=== PATIENT | female | born 1930 | race Hispanic/Latino ===

== ENCOUNTER 2016-11-18 01:08 | Inpatient (IN) | payer MEDICARE, OTHER ==
--- NOTE | 2016-11-18 01:32 | ED PDOC ---
Arrival/HPI - General Chief Complaint: Lower Extremity Problem/Injury Time Seen by Provider: 11/18/16 01:20 Historian: Patient, Usp - History of Present Illness Narrative History of Present Illness (Text): 11/18/16 01:32 Teresa Rojo is an 86 year old female, whose past medical history includes DVT , NSTEMI, hypothyroidism, hyperlipidemia, anxiety, dementia, hypertension, and CHF, who [facility] complaining of right lower leg pain with associated redness. Patient was sent after venous dopplers of the lower extremities were positive for right superficial femoral thrombus and possible left common vein thrombus and further evaluation. Patient denies any fever, chills, chest pain, shortness of breath, or any other complaints. PMD: Dr. Cummins Symptom Onset: Gradual Symptom Course: Unchanged Activities at Onset: Rest, Light Context: Home (assisted) Past Medical History - Infectious Disease Hx of Infectious Diseases: None - Tetanus Immunization Tetanus Immunization: Unknown - Reproductive Menopause: Yes - Cardiac Hx Cardiac Disorders: Yes (Heart murmur) Hx Hypertension: Yes - Pulmonary Hx Respiratory Disorders: No - Neurological Hx Neurological Disorder: Yes HX Cerebrovascular Accident: Yes Hx Dementia: Yes Other/Comment: difff walking - HEENT Hx HEENT Disorder: No - Renal Hx Renal Disorder: No - Endocrine/Metabolic Hx Endocrine Disorders: Yes Hx Hyperthyroidism: Yes - Hematological/Oncological Hx Blood Disorders: No - Integumentary Hx Dermatological Disorder: No - Musculoskeletal/Rheumatological Hx Falls: Yes - Gastrointestinal Hx Gastrointestinal Disorders: Yes (GERD CONSTIPATION,POOR APPETITE) - Genitourinary/Gynecological Hx Genitourinary Disorders: Yes Hx Reproductive Disorders: No - Psychiatric Hx Psychophysiologic Disorder: No Hx Anxiety: Yes Hx Depression: No Hx Emotional Abuse: No Hx Physical Abuse: No Hx Substance Use: No - Past Surgical History Past Surgical History: No Previous - Surgical History Hx Coronary Stent: Yes Hx Thyroidectomy: Yes Other/Comment: partial thyroidectomy many yrs ago - Anesthesia Hx Anesthesia Reactions: No Hx Malignant Hyperthermia: No - Suicidal Assessment Feels Threatened In Home Enviroment: No Family/Social History Family/Social History: No Known Family HX Smoking Status: Never Smoked Hx Alcohol Use: No Hx Substance Use: No Hx Substance Use Treatment: No Allergies/Home Meds Allergies/Adverse Reactions: Allergies No Known Allergies Allergy (Verified 11/18/16 01:26) Home Medications: Home Meds Medication Instructions Recorded Confirmed Aspirin [Tift Aspirin] 81 mg PO DAILY 11/18/16 11/18/16 Atorvastatin Calcium 10 mg PO DAILY 11/18/16 11/18/16 Clopidogrel [Plavix] 75 mg PO DAILY 11/18/16 11/18/16 Donepezil HCl [Aricept] 10 mg PO HS 11/18/16 11/18/16 Ferrous Gluconate [Fergon] 324 mg PO DAILY 11/18/16 11/18/16 Furosemide [Lasix] 40 mg PO DAILY 11/18/16 11/18/16 Isosorbide Mononitrate [Imdur] 30 mg PO DAILY 11/18/16 11/18/16 LORazepam [Ativan] 0.5 mg PO HS 11/18/16 11/18/16 Levothyroxine Sodium [Levo-T] 100 mcg PO DAILY 11/18/16 11/18/16 Metoprolol Tartrate [Lopressor] 50 mg PO DAILY 11/18/16 11/18/16 Potassium Chloride [Klor-Con 10] 10 meq PO DAILY 11/18/16 11/18/16 Review of Systems - Physician Review All systems were reviewed & negative as marked: Yes - Review of Systems Constitutional: Normal. absent: Fevers Eyes: Normal ENT: Normal Respiratory: Normal. absent: SOB, Cough Cardiovascular: Normal. absent: Chest Pain Gastrointestinal: Normal. absent: Abdominal Pain, Diarrhea, Nausea, Vomiting Genitourinary Female: Normal. absent: Dysuria, Frequency, Hematuria, Urine Output Changes Musculoskeletal: Other (+right lower leg pain). absent: Back Pain, Neck Pain Skin: Normal. absent: Rash Neurological: Normal Endocrine: Normal Hemo/Lymphatic: Normal Psychiatric: Normal Physical Exam Vital Signs Reviewed: Yes Vital Signs Temp Pulse Resp BP Pulse Ox 11/18/16 01:21 98.6 F 80 18 120/58 L 95 Temperature: Afebrile Blood Pressure: Normal Pulse: Regular Respiratory Rate: Normal Appearance: Positive for: Well-Appearing, Non-Toxic, Comfortable Pain Distress: None Mental Status: Positive for: Alert and Oriented X 3 - Systems Exam Head: Present: Atraumatic, Normocephalic Pupils: Present: PERRL Extroacular Muscles: Present: EOMI Conjunctiva: Present: Normal Mouth: Present: Moist Mucous Membranes Neck: Present: Normal Range of Motion Respiratory/Chest: Present: Clear to Auscultation, Good Air Exchange. No: Respiratory Distress, Accessory Muscle Use Cardiovascular: Present: Regular Rate and Rhythm, Normal S1, S2. No: Murmurs Abdomen: Present: Normal Bowel Sounds. No: Tenderness, Distention, Peritoneal Signs Back: Present: Normal Inspection Upper Extremity: Present: Normal Inspection. No: Cyanosis, Edema Lower Extremity: Present: CALF TENDERNESS (Calf tenderness to right lower leg), Tenderness (Tenderess to palpation of right lower leg, minimal tenderness to left lower leg), Erythema (Cellulitis/erythema to right and left lower leg), Temperature Abnormalties (Warmth to bilateral lower legs) Neurological: Present: GCS=15, CN II-XII Intact, Speech Normal Skin: Present: Warm, Dry, Normal Color. No: Rashes Psychiatric: Present: Alert, Oriented x 3, Normal Insight, Normal Concentration Medical Decision Making ED Course and Treatment: 11/18/16 01:32 Impression: 86 year old female c/o right lower leg pain. Pt sent for positive lower extremities ultrasound. Plan: -- EKG -- CXR -- Labs, blood cultures -- Reassess and disposition Progress Notes: Reviewed EKG, NSR at [address] LVH. Non-specific ST/T wave changes. 11/18/16 04:01 Case discussed with biomedical technician substation technician, who is aware and agrees with plan. Case discussed with Dr. Swift, who is aware and agrees with plan. Accepts pt in to hospitalist service. Pt will be admitted to [facility] for cellulitis and DVT. - Lab Interpretations Lab Results: 11/18/16 03:17 11/18/16 03:17 Lab Results 11/18/16 03:17: WBC 6.3, RBC 3.54, Hgb 11.3 L, Hct 34.4 L, MCV 97.2, MCH 31.9, MCHC 32.8, RDW 13.9, Plt Count 187, MPV 9.5 11/18/16 03:17: Sodium 135, Potassium 4.3, Chloride 100, Carbon Dioxide 26, Anion Gap 13, BUN 25 H, Creatinine 1.2, Est GFR ( Amer) 51, Est GFR (Non- Af Amer) 42, Random Glucose 111 H, Calcium 8.3 L, Total Bilirubin 0.3, AST 29, ALT 27, Alkaline Phosphatase 73, Total Protein 6.5, Albumin 3.6, Globulin 2.9, Albumin/Globulin Ratio 1.3 11/18/16 03:17: PT 10.2, INR 0.94, APTT 29.7 I have reviewed the lab results: Yes - RAD Interpretation Radiology Orders: 11/18/16 01:34 CHEST PORTABLE [RAD] Stat Ax Survey Worker: Radiologist - EKG Interpretation Interpreted by ED Physician: Yes Type: 12 lead EKG - Medication Orders Current Medication Orders: Acetaminophen (Tylenol 325mg Tab) 650 mg PO Q6H PRN PRN Reason: Pain, moderate (4-7) Aspirin (Aspirin Chewable) 81 mg PO DAILY [facility] Atorvastatin Calcium (Lipitor) 10 mg PO DAILY [facility] Clopidogrel Bisulfate (Plavix) 75 mg PO DAILY [facility] Donepezil HCl (Aricept) 10 mg PO HS [facility] Doxycycline Hyclate (Doryx) 100 mg PO Q12 [facility] PRN Reason: Protocol Stop: 11/24/16 10:00 Ferrous Gluconate (Fergon) 324 mg PO DAILY [facility] Fluconazole (Diflucan) 100 mg PO DAILY [facility] PRN Reason: Protocol Stop: 11/24/16 10:00 Furosemide (Lasix) 40 mg PO DAILY [facility] Isosorbide Mononitrate (Imdur) 30 mg PO DAILY [facility] Levothyroxine Sodium (Synthroid) 100 mcg PO DAILY [facility] Lorazepam (Ativan) 0.5 mg PO HS [facility] PRN Reason: Protocol Metoprolol Tartrate (Lopressor) 50 mg PO DAILY [facility] Pantoprazole Sodium (Protonix Inj) 40 mg IVP DAILY [facility] Potassium Chloride (Klor-Con 10) 10 meq PO DAILY [facility] Discontinued Medications Enoxaparin Sodium (Lovenox) 80 mg SC STAT STA PRN Reason: Protocol Stop: 11/18/16 03:54 Last Admin: 11/18/16 04:31 Dose: 80 mg Vancomycin HCl (Vancomycin 1gm) 1 gm in 250 mls @ 133.333 mls/hr IVPB STAT STA PRN Reason: Protocol Stop: 11/18/16 05:45 Last Admin: 11/18/16 04:21 Dose: 133.333 mls/hr - Scribe Statement The provider has reviewed the documentation as recorded by the Ramón Phillips Provider Scribe Attestation: All medical record entries made by the Ramón were at my direction and personally dictated by me. I have reviewed the chart and agree that the record accurately reflects my personal performance of the history, physical exam, medical decision making, and the department course for this patient. I have also personally directed, reviewed, and agree with the discharge instructions and disposition. Disposition/Present on Arrival - Present on Arrival Any Indicators Present on Arrival: No History of DVT/PE: No History of Uncontrolled Diabetes: No Urinary Catheter: No History of Decub. Ulcer: No History Surgical Site Infection Following: None - Disposition Have Diagnosis and Disposition been Completed?: Yes Diagnosis: DVT, lower extremity, Cellulitis of leg Disposition: HOSPITALIZED Disposition Time: 03:59 Patient Plan: Admission Patient Problems: Current Active Problems Problem Status Onset Cellulitis of leg Acute DVT, lower extremity Acute Condition: STABLE
[2016-11-18 03:30] LABS: HEMATOCRIT 34.4 % (36.0-48.0); MEAN CELL VOLUME 97.2 fl (80.0-105.0); MEAN CORPUSCULAR HEMOGLOBIN 31.9 pg (25.0-35.0); MEAN CORPUSCULAR HGB CONC 32.8 g/dl (31.0-37.0); MEAN PLATELET VOLUME 9.5 fl (7.0-11.0); RED CELL DISTRIBUTION WIDTH 13.9 % (11.5-14.5); WHITE BLOOD COUNT 6.3 10^3/ul (4.5-11.0)
[2016-11-18 03:38] LABS: INR 0.94 (0.93-1.08); PARTIAL THROMBOPLASTIN TIME 29.7 Seconds (23.7-30.8)
[2016-11-18 03:43] LABS: ALB/GLOB RATIO 1.3 (1.1-1.8); BILIRUBIN,TOTAL 0.3 mg/dL (0.2-1.3); CALCIUM 8.3 mg/dL (8.4-10.5); POTASSIUM 4.3 mmol/L (3.6-5.0); TOTAL PROTEIN 6.5 g/dL (5.8-8.3)
[2016-11-18] MEDS ORDERED: Enoxaparin 80 mg Syringe SC STA (03:53)
[2016-11-18] MEDS ORDERED: Vancomycin 1gm in NS 250ml 1 GM/250 ML BAG IVPB STA (03:53)
--- NOTE | 2016-11-18 04:57 | CP.PCM.HP ---
<Arnol Canchola - Last Filed: 11/18/16 06:07> History of Present Illness - History of Present Illness History of Present Illness: CC: Lower leg edema/pain HPI: Patient is a 86 year old female with PMH sig for DVT, NSTEMI, hypothyroidism, HLD, anxiety, HTN, CHF and dementia who presents to the ED from [facility] complaining of lower leg edema and redness. The patient was sent to [facility] by Dr. Cummins for further evaluation after lower extremity venous dopplers were positive for right superficial femoral thrombus with possible left common vein thrombus. Patient is noted to be poor historian during interview and expresses inappropriate comments directed toward interviewer. Patient interviewed with female nurse present. She reports noticing her leg edema and redness for the past month. According to chart notes sent with patient from [place] she has was scheduled to receive Augmentin for lower extremity cellulitis. Patient possibly received 2 days of antibiotic. She indicates that her legs are itchy and are painful to touch with the right leg being more sensitive then the left. Patient denies chest pain, shortness of breath, fever, chills, nausea, vomiting, loss of feeling in her lower extremities, or other complaints. 12 point ROS is negative otherwise noted in HPI. PMH: As stated above PSH: denies FMH: denies SocHx: Tobacco: denies, ETOH: Denies, ID: Denies Allergies: NKDA Meds: See JUN PMD: Dr. Cummins Present on Admission - Present on Admission Any Indicators Present on Admission: Yes History of DVT/PE: Yes History of Uncontrolled Diabetes: No Urinary Catheter: No Decubitus Ulcer Present: No Review of Systems - Review of Systems All systems: reviewed and no additional remarkable complaints except Review of Systems: except mentioned in HPI Past Patient History - Infectious Disease Hx of Infectious Diseases: None - Tetanus Immunizations Tetanus Immunization: Unknown - Past Social History Smoking Status: Never Smoked Alcohol: None Drugs: Denies - CARDIAC Hx Cardiac Disorders: Yes (Heart murmur) Hx Hypertension: Yes - PULMONARY Hx Respiratory Disorders: No - NEUROLOGICAL Hx Neurological Disorder: Yes HX Cerebrovascular Accident: Yes Hx Dementia: Yes Other/Comment: difff walking - HEENT Hx HEENT Problems: No - RENAL Hx Chronic Kidney Disease: No - ENDOCRINE/METABOLIC Hx Endocrine Disorders: Yes Hx Hyperthyroidism: Yes - HEMATOLOGICAL/ONCOLOGICAL Hx Blood Disorders: No - INTEGUMENTARY Hx Dermatological Problems: No - MUSCULOSKELETAL/RHEUMATOLOGICAL Hx Falls: Yes - GASTROINTESTINAL Hx Gastrointestinal Disorders: Yes (GERD CONSTIPATION,POOR APPETITE) - GENITOURINARY/GYNECOLOGICAL Hx Genitourinary Disorders: Yes Hx Reproductive Disorders: No - PSYCHIATRIC Hx Psychophysiologic Disorder: No Hx Anxiety: Yes Hx Depression: No Hx Emotional Abuse: No Hx Physical Abuse: No Hx Substance Use: No - SURGICAL HISTORY Hx Coronary Stent: Yes Hx Thyroidectomy: Yes Other/Comment: partial thyroidectomy many yrs ago - ANESTHESIA Hx Anesthesia Reactions: No Hx Malignant Hyperthermia: No Meds Allergies/Adverse Reactions: Allergies Allergy/AdvReac Type Severity Reaction Status Date / Time No Known Allergies Allergy Verified 11/18/16 01:26 Physical Exam - Head Exam Head Exam: ATRAUMATIC, NORMAL INSPECTION, NORMOCEPHALIC - Eye Exam Eye Exam: EOMI, PERRL - ENT Exam ENT Exam: Mucous Membranes Moist, Normal Exam - Neck Exam Neck exam: Positive for: Full Rom. Negative for: Tenderness, Thyromegaly - Respiratory Exam Respiratory Exam: Clear to Auscultation Bilateral, NORMAL BREATHING PATTERN - Cardiovascular Exam Cardiovascular Exam: REGULAR RHYTHM, +S1, +S2, Systolic Murmur - GI/Abdominal Exam GI & Abdominal Exam: Normal Bowel Sounds, Soft - Extremities Exam Extremities exam: Positive for: calf tenderness (bilateral R>L), pedal edema (+ 1 bilateral ), pedal pulses present Additional comments: erythema noted bilateral lower extremities - Back Exam Back exam: NORMAL INSPECTION - Neurological Exam Neurological exam: Alert, CN II-XII Intact, Oriented x3, Reflexes Normal Additional comments: motor and sensory grossly intact - Psychiatric Exam Psychiatric exam: Normal Mood - Skin Skin Exam: Intact, Normal Color, Warm Additional comments: erythema and increased temperature noted in lower extremities bilateral from ankle to mid tibia Results - Vital Signs Recent Vital Signs: Last Vital Signs Temp 98.6 F 11/18/16 01:21 Pulse 80 11/18/16 01:21 Resp 18 11/18/16 01:21 BP 120/58 L 11/18/16 01:21 Pulse Ox 95 11/18/16 01:21 - Labs Result Diagrams: 11/18/16 03:17 11/18/16 03:17 Labs: Laboratory Results - last 24 hr 11/18/16 11/18/16 11/18/16 03:17 03:17 03:17 WBC 6.3 RBC 3.54 Hgb 11.3 L Hct 34.4 L MCV 97.2 MCH 31.9 MCHC 32.8 RDW 13.9 Plt Count 187 MPV 9.5 PT 10.2 INR 0.94 APTT 29.7 Sodium 135 Potassium 4.3 Chloride 100 Carbon Dioxide 26 Anion Gap 13 BUN 25 H Creatinine 1.2 Est GFR ( Amer) 51 Est GFR (Non-Af Amer) 42 Random Glucose 111 H Calcium 8.3 L Total Bilirubin 0.3 AST 29 ALT 27 Alkaline Phosphatase 73 Total Protein 6.5 Albumin 3.6 Globulin 2.9 Albumin/Globulin Ratio 1.3 Assessment & Plan - Assessment and Plan (Free Text) Assessment: Patient is a 86 year old female with PMH sig for DVT, NSTEMI, hypothyroidism, HLD, anxiety, HTN, CHF and dementia who presents to the ED from [facility] complaining of lower leg edema and redness. She had dopplers of her lower extremity done outpatient which showed lower leg SVT and possible - . She is being evaluated and treated for cellulitis of lower extremities. Plan: 1. DVT - Outpatient doppler u/s positive for thrombus in Right superficial femoral vein , with possible left common vein thrombus - Lovenox given in ED - Contact PMD for preferred anticoagulant - pain management with morphine 2. Dermatitis - Lower extremity bilateral erythema and puritis - Vancomyocin given in ED - Satellite lesions noted on exam - Suspect secondary to cellulitis vs. fungal origin - Doxycycline 100mg BID for 7 days - Fluconazole 100mg Daily for 7 days 3. Hx of CHF - continue home meds 4. Hx of hypothyroidism - continue home meds 5. Hx of Anxiety - continue home meds 6. Hx of HLD - continue home meds 7. GI ppx - Protonix Case reviewed and discussed with attending - Date & Time Date: 11/18/16 Time: 05:04 <Mynor Swift P - Last Filed: 11/18/16 06:57> Results - Vital Signs Recent Vital Signs: Last Vital Signs Temp 98.6 F 11/18/16 01:21 Pulse 80 11/18/16 01:21 Resp 18 11/18/16 01:21 BP 120/58 L 11/18/16 01:21 Pulse Ox 95 11/18/16 01:21 - Labs Result Diagrams: 11/18/16 03:17 11/18/16 03:17 Attending/Attestation - Attestation I have personally seen and examined this patient.: Yes I have fully participated in the care of the patient.: Yes I have reviewed all pertinent clinical information: Yes Notes (Text): Assessment: * Newly diagnosed right superficial femoral DVT, and possible left common femoral vein dvt on w/u for swelling * Erythema and suspected satellite lessions on both lower legs, tender right lower leg clinically dermatitis vs fungal infn less likely cellutlitis * H/o significant 0.5cm2, and MR EF of 25% last year, clinically not symptomatic * Mild dementia * h/o fall risk * CAD history Plan * Lovenox 1mg/kg dose oral anticoagulant probably eliquis will d/w pmd * Doxycycline 100mg oral bid/ diflucan 100mg oral daily x7 days * See orders for detail.
[2016-11-18] MEDS ORDERED: Morphine 2 mg/ml ISec IVP PRN (06:45)
--- NOTE | 2016-11-18 07:45 | RAD ---
HISTORY: medical clearance COMPARISON: Comparison is made to 06/07/2015 FINDINGS: LUNGS: No active pulmonary disease. PLEURA: No significant pleural effusion identified, no pneumothorax apparent. CARDIOVASCULAR: Normal. OSSEOUS STRUCTURES: No significant abnormalities. VISUALIZED UPPER ABDOMEN: Normal. OTHER FINDINGS: None. IMPRESSION: No active disease.
--- NOTE | 2016-11-18 09:36 | CARD ---
APPROVED REPORT EKG Measurement Heart [id number] <Conclusion> Normal sinus rhythm Left ventricular hypertrophy with repolarization abnormality.
[2016-11-18] MEDS: Levothyroxine 100 MCG TAB PO SCH (09:45)
[2016-11-18] MEDS: Potassium Chloride 10 mEq ER Tab PO SCH (09:46)
[2016-11-18] MEDS: cefTRIAXone 1 gm 1 GM/100 ML BAG IVPB SCH (15:00)
--- NOTE | 2016-11-19 04:51 | CON ---
DATE: 11/18/2016 CONSULT SERVICE: [employer]. REASON FOR CONSULTATION: Cardiac evaluation, admitted with DVT. BRIEF CLINICAL HISTORY: This is an 86-year-old female from long term. The patient was sent after venous Doppler of lower extremity positive for femoral thrombus and possible left common vein thrombus for further evaluation and management. The patient denies any chest pain, shortness of breath or any palpitation. PAST MEDICAL HISTORY: Significant for DVT, non-STEMI, hypothyroidism, hyperlipidemia, anxiety disorder, dementia, hypertension and CHF. SOCIAL HISTORY: Denies smoking. Denies history of alcohol abuse. Past history as mentioned DVT, non-STEMI, hypothyroidism, hyperlipidemia, anxiety disorder, CHF, resident of [facility], was sent as venous Doppler was positive for right superficial femoral vein thrombus and possible left common vein thrombus. The patient denies any chest pain, shortness of breath or any palpitation. REVIEW OF SYSTEMS: As per HPI. CURRENT MEDICATIONS: The patient at home was taking potassium chloride, metoprolol tartarate 50 mg, levothyroxine 100 mcg, Ativan 0.5 mg, Imdur 30, Lasix 40 mg, ferrous sulphate 324, Aricept 10, Plavix 75 mg, atorvastatin 10 and aspirin 81 mg daily. ALLERGIES: NO KNOWN DRUG ALLERGIES. PHYSICAL EXAMINATION: As follows: VITAL SIGNS: Temperature afebrile, heart rate 60 and blood pressure 109/43. HEENT: PERRLA intact. NECK: Supple. No carotid bruit. No thyromegaly. CHEST: Clear to auscultation. HEART: S1 and S2, regular. ABDOMEN: Soft. EXTREMITIES: Clubbing and cyanosis negative. LABORATORY DATA: WBC 6.3, hemoglobin 11.8, hematocrit 34.4 and platelet count 187. Chemistry shows sodium 135, potassium 4.3, chloride 100, CO2 of 26, anion gap of 30, BUN 25 and creatinine 1.2, total protein 6.5 and albumin 3.6. Albumin and globulin ration 1.3. EKG showed normal sinus LVH with repolarization abnormality. Previous cardiac workup as follows: The patient had echocardiography on 06/09/2015 that showed ejection fraction of 25% to 30%, trace aortic regurgitation, severe valvular aortic stenosis measuring 0.5 cm sq, moderate to severe trace tricuspid regurg, RV systolic pressure of 24. ASSESSMENT: The patient is an 86-year-old female with past medical history significant for dementia, hyperlipidemia, hypertension, cardiomyopathy, non-ST segment myocardial infarction. The patient admitted on 06/08/2015 for non-ST elevation myocardial infarction, severe aortic stenosis measuring 0.5 cm sq, ejection fraction of 25% to 30%, aortic regurgitation, moderate to severe mitral regurgitation, tricuspid regurgitation, right ventricular systolic pressure of 24. Dementia, underlying coronary artery disease in the past, non-ST segment myocardial infarction in the past, admitted with deep vein thrombosis and was transferred here for further management. RECOMMENDATION: In view of the above, the patient managed aggressively with medical management. No plan for aggressive intervention. We will start enoxaparin 1 mg per kg q.12 and we will repeat Doppler. Depending upon the Doppler finding, we will switch over to Eliquis 10 mg b.i.d. for 7 days and followed by 5 mg for treatment of DVT. We will follow with you. Thank you Dr. Rashid for the opportunity in taking care of the patient, Darrel Moore. We will follow with you. We will get lipid profile, TSH, hemoglobin A1c. Karlie Mace MD
[2016-11-19] MEDS: Pantoprazole 40 mg EC Tab PO SCH (05:33)
[2016-11-19] MEDS: Enoxaparin 80 mg Syringe SC SCH ×2 (05:36→17:53)
[2016-11-19 07:47] LABS: INR 1.02 (0.93-1.08)
[2016-11-19 07:48] LABS: BASO # 0.04 K/mm3 (0.0-2.0); BASO % 0.9 % (0.0-3.0); EOS # 0.3 (0.0-0.7); EOS % 6.5 % (1.5-5.0); GRAN # 2.93 (1.4-6.5); GRAN % 63.7 % (50.0-68.0); HEMATOCRIT 34.8 % (36.0-48.0); LYMPH # 0.9 (1.2-3.4); LYMPH % 19.1 % (22.0-35.0); MEAN CELL VOLUME 96.7 fl (80.0-105.0); MEAN CORPUSCULAR HEMOGLOBIN 31.9 pg (25.0-35.0); MONO # 0.5 (0.1-0.6); MONO % 9.8 % (1.0-6.0); RED CELL DISTRIBUTION WIDTH 13.9 % (11.5-14.5); WHITE BLOOD COUNT 4.6 10^3/ul (4.5-11.0)
[2016-11-19 08:00] LABS: ALB/GLOB RATIO 1.2 (1.1-1.8); BILIRUBIN,TOTAL 0.4 mg/dL (0.2-1.3); PHOSPHOROUS 3.4 mg/dL (2.5-4.5); POTASSIUM 4.3 mmol/L (3.6-5.0); TOTAL PROTEIN 6.4 g/dL (5.8-8.3)
[2016-11-19] MEDS: Levothyroxine 100 MCG TAB PO SCH (08:39)
[2016-11-19] MEDS: Potassium Chloride 10 mEq ER Tab PO SCH (09:32)
[2016-11-19] MEDS: cefTRIAXone 1 gm 1 GM/100 ML BAG IVPB SCH (09:35)
[2016-11-19] MEDS: DiphenhydrAMINE 1% 1 EA TUBE TOP PRN (09:54)
--- NOTE | 2016-11-19 15:23 | CP.PCM.PN ---
Subjective - Date & Time of Evaluation Date of Evaluation: 11/19/16 Time of Evaluation: 15:21 - Subjective Subjective: Pt has very poor veins,needs iv access. Objective - Vital Signs/Intake and Output Vital Signs (last 24 hours): Temp Pulse Resp BP Pulse Ox 98 F 70 18 132/60 94 L 11/19/16 14:00 11/19/16 14:00 11/19/16 14:00 11/19/16 14:00 11/19/16 08:01 Intake and Output: 11/19/16 11/19/16 06:59 18:59 Intake Total 360 480 Balance 360 480 - Medications Medications: Current Medications Acetaminophen (Tylenol 325mg Tab) 650 mg PO Q6H PRN PRN Reason: Pain, moderate (4-7) Aspirin (Aspirin Chewable) 81 mg PO DAILY [facility] Last Admin: 11/19/16 09:33 Dose: 81 mg Atorvastatin Calcium (Lipitor) 10 mg PO DAILY [facility] Last Admin: 11/19/16 09:33 Dose: 10 mg Diphenhydramine HCl (Benadryl Maximum Strength 1%) 0 ea TOP Q6H PRN PRN Reason: Itching / Pruritus Last Admin: 11/19/16 09:54 Dose: 1 appl Donepezil HCl (Aricept) 10 mg PO HS [facility] Last Admin: 11/18/16 21:36 Dose: 10 mg Enoxaparin Sodium (Lovenox) 80 mg SC Q12H [facility] PRN Reason: Protocol Last Admin: 11/19/16 05:36 Dose: 80 mg Ferrous Gluconate (Fergon) 324 mg PO DAILY [facility] Last Admin: 11/19/16 09:34 Dose: 324 mg Fluconazole (Diflucan) 100 mg PO DAILY [facility] PRN Reason: Protocol Stop: 11/24/16 10:00 Last Admin: 11/19/16 09:33 Dose: 100 mg Furosemide (Lasix) 40 mg PO DAILY [facility] Last Admin: 11/19/16 09:34 Dose: 40 mg Ceftriaxone Sodium (Rocephin 1 Gram Ivpb) 1 gm in 100 mls @ 100 mls/hr IVPB DAILY [facility] PRN Reason: Protocol Last Admin: 11/19/16 09:35 Dose: 100 mls/hr Isosorbide Mononitrate (Imdur) 30 mg PO DAILY [facility] Last Admin: 11/19/16 09:33 Dose: 30 mg Levothyroxine Sodium (Synthroid) 125 mcg PO ACB [facility] Lorazepam (Ativan) 0.5 mg PO HS [facility] PRN Reason: Protocol Last Admin: 11/18/16 21:36 Dose: 0.5 mg Metoprolol Tartrate (Lopressor) 50 mg PO DAILY [facility] Last Admin: 11/19/16 09:32 Dose: 50 mg Morphine Sulfate (Morphine) 2 mg IVP Q4H PRN PRN Reason: Pain, severe (8-10) Pantoprazole Sodium (Protonix Ec Tab) 40 mg PO 0600 [facility] Last Admin: 11/19/16 05:33 Dose: 40 mg Potassium Chloride (Klor-Con 10) 10 meq PO DAILY [facility] Last Admin: 11/19/16 09:32 Dose: 10 meq - Labs Labs: 11/19/16 07:33 11/19/16 07:33 PT 11.0 Seconds (9.9-11.8) 11/19/16 07:33 INR 1.02 (0.93-1.08) 11/19/16 07:33 APTT 29.7 Seconds (23.7-30.8) 11/18/16 03:17 - Constitutional Appears: No Acute Distress Assessment and Plan - Assessment and Plan (Free Text) Assessment: Poor venous access. Plan: Hep lock inserted in the R hand. # 24 angiocath used.
--- NOTE | 2016-11-19 15:32 | PN ---
DATE: REASON FOR CONSULTATION: Followup. SUBJECTIVE: Admitted with DVT, cardiac evaluation. Son is the bedside. The patient denies any chest pain. Wanted to go back to the group home. Denies any chest pain, shortness of breath, any palpitation. OBJECTIVE: GENERAL: The patient is sitting in the bed, not in apparent distress. VITAL SIGNS: Temperature afebrile, heart rate 70, blood pressure 132/60. HEENT: PERRLA. Extraocular muscles intact. NECK: Supple. No carotid bruit, JVD, or thyromegaly. CHEST: Clear to auscultation. HEART: S1 and S2 regular. Loud systolic murmur. Aortic stenosis noted. ABDOMEN: Soft. EXTREMITIES: Swollen extremities noted. 1 to 2+ pedal edema. LABORATORY DATA: Blood workup as follows: WBC 4.6, hemoglobin 11.5, hematocrit 34.8, platelet count 189. Chemistries show sodium 136, potassium 4.3, chloride 101, carbon dioxide 26, anion gap of 13 , BUN of 21, creatinine 1.2. TSH 17.8. IMPRESSION: Hypothyroidism, morbid obesity, body mass index 30 kg/m2, severe aortic stenosis. Transferred from the group home for possible rule out deep venous thrombosis, pulmonary embolism. RECOMMENDATION: Start Lovenox 1 mg/kg q. 12 hours. Continue beta ry. Discontinue Plavix because the patient has history of non-ST elevation myocardial infarction, but the patient is now on aspirin as well as Lovenox. If the DVT is positive, we will start Eliquis 10 mg b.i.d. for 7 days followed by 5 mg for the treatment of the DVT. Discussed with Dr. Rashid. Await for the official reading for the ultrasound duplex. The patient's last echo shows trace aortic regurgitation, severe aortic stenosis, valve area 0.5 cm2, moderate to severe mitral regurgitation, trace tricuspid regurgitation. Though the patient is in critical aortic stenosis, and asymptomatic because of limited activity, we will try to treat medically for now. As soon as the patient becomes symptomatic, consider TAVR will be high risk because of underlying comorbidity. Discussed with the son. As mentioned, we will wait for ultrasound duplex. Once officially read a new DVT, then we will start Eliquis 10 mg b.i.d. for 7 days followed by 5 mg b.i.d. and discontinue Lovenox. Interim, continue Lovenox and discontinue Plavix and continue baby aspirin. Karlie Mace MD
--- NOTE | 2016-11-19 15:35 | CP.PCM.PN ---
<BYRSON SHEPARD - Last Filed: 11/19/16 15:32> Subjective - Date & Time of Evaluation Date of Evaluation: 11/19/16 Time of Evaluation: 15:32 - Subjective Subjective: Medicine Progress Note: Pt seen and examined at bedside. Pt denies any acute overnight events. Pt states that b/l LE pain is improving. Pt denies CP, SOB, n/v/d, fever, chills, abdominal pain, PAUL, vertigo, dysuria, polyuria, or numbness. Objective - Vital Signs/Intake and Output Vital Signs (last 24 hours): Temp Pulse Resp BP Pulse Ox 98 F 70 18 132/60 94 L 11/19/16 14:00 11/19/16 14:00 11/19/16 14:00 11/19/16 14:00 11/19/16 08:01 Intake and Output: 11/19/16 11/19/16 06:59 18:59 Intake Total 360 480 Balance 360 480 - Medications Medications: Current Medications Acetaminophen (Tylenol 325mg Tab) 650 mg PO Q6H PRN PRN Reason: Pain, moderate (4-7) Aspirin (Aspirin Chewable) 81 mg PO DAILY [facility] Last Admin: 11/19/16 09:33 Dose: 81 mg Atorvastatin Calcium (Lipitor) 10 mg PO DAILY [facility] Last Admin: 11/19/16 09:33 Dose: 10 mg Diphenhydramine HCl (Benadryl Maximum Strength 1%) 0 ea TOP Q6H PRN PRN Reason: Itching / Pruritus Last Admin: 11/19/16 09:54 Dose: 1 appl Donepezil HCl (Aricept) 10 mg PO HS [facility] Last Admin: 11/18/16 21:36 Dose: 10 mg Enoxaparin Sodium (Lovenox) 80 mg SC Q12H [facility] PRN Reason: Protocol Last Admin: 11/19/16 05:36 Dose: 80 mg Ferrous Gluconate (Fergon) 324 mg PO DAILY [facility] Last Admin: 11/19/16 09:34 Dose: 324 mg Fluconazole (Diflucan) 100 mg PO DAILY [facility] PRN Reason: Protocol Stop: 11/24/16 10:00 Last Admin: 11/19/16 09:33 Dose: 100 mg Furosemide (Lasix) 40 mg PO DAILY [facility] Last Admin: 11/19/16 09:34 Dose: 40 mg Ceftriaxone Sodium (Rocephin 1 Gram Ivpb) 1 gm in 100 mls @ 100 mls/hr IVPB DAILY [facility] PRN Reason: Protocol Last Admin: 11/19/16 09:35 Dose: 100 mls/hr Isosorbide Mononitrate (Imdur) 30 mg PO DAILY [facility] Last Admin: 11/19/16 09:33 Dose: 30 mg Levothyroxine Sodium (Synthroid) 125 mcg PO ACB [facility] Lorazepam (Ativan) 0.5 mg PO HS [facility] PRN Reason: Protocol Last Admin: 11/18/16 21:36 Dose: 0.5 mg Metoprolol Tartrate (Lopressor) 50 mg PO DAILY [facility] Last Admin: 11/19/16 09:32 Dose: 50 mg Morphine Sulfate (Morphine) 2 mg IVP Q4H PRN PRN Reason: Pain, severe (8-10) Pantoprazole Sodium (Protonix Ec Tab) 40 mg PO 0600 [facility] Last Admin: 11/19/16 05:33 Dose: 40 mg Potassium Chloride (Klor-Con 10) 10 meq PO DAILY [facility] Last Admin: 11/19/16 09:32 Dose: 10 meq - Labs Labs: 11/19/16 07:33 11/19/16 07:33 PT 11.0 Seconds (9.9-11.8) 11/19/16 07:33 INR 1.02 (0.93-1.08) 11/19/16 07:33 APTT 29.7 Seconds (23.7-30.8) 11/18/16 03:17 - Constitutional Appears: No Acute Distress - Head Exam Head Exam: ATRAUMATIC, NORMOCEPHALIC - Eye Exam Eye Exam: EOMI, PERRL - ENT Exam ENT Exam: Mucous Membranes Moist - Neck Exam Neck Exam: Full ROM. absent: Lymphadenopathy, Tenderness, Thyromegaly - Respiratory Exam Respiratory Exam: Clear to Ausculation Bilateral. absent: Rales, Rhonchi, Wheezes - Cardiovascular Exam Cardiovascular Exam: RRR. absent: Diastolic murmur, Gallop, Rubs, Murmur - GI/Abdominal Exam GI & Abdominal Exam: Soft. absent: Guarding, Tenderness, Rebound - Extremities Exam Extremities Exam: Calf Tenderness, Normal Capillary Refill, Pedal Edema, Tenderness - Back Exam Back Exam: NORMAL INSPECTION - Neurological Exam Neurological Exam: Alert, Awake, Oriented x3 - Psychiatric Exam Psychiatric exam: Normal Affect, Normal Mood - Skin Skin Exam: Erythema, Intact, Rash, Warm (Hyperthermia improved in b/l LE) Assessment and Plan - Assessment and Plan (Free Text) Assessment: 86 year old female with PMH sig for DVT, NSTEMI, hypothyroidism, HLD, anxiety, HTN, CHF and dementia who is admitted for evaluation and treatment for cellulitis of lower extremities and b/l LE DVT. Plan: 1. B/L LE DVT - Lovenox 80 mg SC Q12H - Cardiology consulted, recommendations appreciated, d/c plavix - F/u official read for repeat venous doppler - Per cardio, if DVT positive will start Eliquis - Outpatient doppler u/s positive for thrombus in Right superficial femoral vein , with possible left common vein thrombus - Pain management with morphine 2. Cellulitis - Lower extremity bilateral erythema and pruritis - Satellite lesions noted on exam - Suspect secondary to cellulitis vs. fungal origin - Ceftriaxone 1 gm IVPB - Fluconazole 100mg Daily for 7 days 3. Hypothyroidism - TSH 17.8 - Free T4 0.51 - Increased Synthroid to 125 mcg 4. Hx of CHF - continue home meds 5. Hx of Anxiety - continue home meds 6. Hx of HLD - continue home meds 7. GI ppx - Protonix Case reviewed and discussed with Dr Rashid. <Sarah Rashid - Last Filed: 11/19/16 16:09> Objective - Vital Signs/Intake and Output Vital Signs (last 24 hours): Temp Pulse Resp BP Pulse Ox 98 F 70 18 132/60 94 L 11/19/16 14:00 11/19/16 14:00 11/19/16 14:00 11/19/16 14:00 11/19/16 08:01 Intake and Output: 11/19/16 11/19/16 06:59 18:59 Intake Total 360 480 Balance 360 480 - Medications Medications: Current Medications Acetaminophen (Tylenol 325mg Tab) 650 mg PO Q6H PRN PRN Reason: Pain, moderate (4-7) Aspirin (Aspirin Chewable) 81 mg PO DAILY [facility] Last Admin: 11/19/16 09:33 Dose: 81 mg Atorvastatin Calcium (Lipitor) 10 mg PO DAILY [facility] Last Admin: 11/19/16 09:33 Dose: 10 mg Diphenhydramine HCl (Benadryl Maximum Strength 1%) 0 ea TOP Q6H PRN PRN Reason: Itching / Pruritus Last Admin: 11/19/16 09:54 Dose: 1 appl Donepezil HCl (Aricept) 10 mg PO HS [facility] Last Admin: 11/18/16 21:36 Dose: 10 mg Enoxaparin Sodium (Lovenox) 80 mg SC Q12H [facility] PRN Reason: Protocol Last Admin: 11/19/16 05:36 Dose: 80 mg Ferrous Gluconate (Fergon) 324 mg PO DAILY [facility] Last Admin: 11/19/16 09:34 Dose: 324 mg Fluconazole (Diflucan) 100 mg PO DAILY [facility] PRN Reason: Protocol Stop: 11/24/16 10:00 Last Admin: 11/19/16 09:33 Dose: 100 mg Furosemide (Lasix) 40 mg PO DAILY [facility] Last Admin: 11/19/16 09:34 Dose: 40 mg Ceftriaxone Sodium (Rocephin 1 Gram Ivpb) 1 gm in 100 mls @ 100 mls/hr IVPB DAILY [facility] PRN Reason: Protocol Last Admin: 11/19/16 09:35 Dose: 100 mls/hr Isosorbide Mononitrate (Imdur) 30 mg PO DAILY [facility] Last Admin: 11/19/16 09:33 Dose: 30 mg Levothyroxine Sodium (Synthroid) 125 mcg PO ACB [facility] Lorazepam (Ativan) 0.5 mg PO HS [facility] PRN Reason: Protocol Last Admin: 11/18/16 21:36 Dose: 0.5 mg Metoprolol Tartrate (Lopressor) 50 mg PO DAILY [facility] Last Admin: 11/19/16 09:32 Dose: 50 mg Morphine Sulfate (Morphine) 2 mg IVP Q4H PRN PRN Reason: Pain, severe (8-10) Pantoprazole Sodium (Protonix Ec Tab) 40 mg PO 0600 [facility] Last Admin: 11/19/16 05:33 Dose: 40 mg Potassium Chloride (Klor-Con 10) 10 meq PO DAILY [facility] Last Admin: 11/19/16 09:32 Dose: 10 meq - Labs Labs: 11/19/16 07:33 11/19/16 07:33 PT 11.0 Seconds (9.9-11.8) 11/19/16 07:33 INR 1.02 (0.93-1.08) 11/19/16 07:33 APTT 29.7 Seconds (23.7-30.8) 11/18/16 03:17 Attending/Attestation - Attestation I have personally seen and examined this patient.: Yes I have fully participated in the care of the patient.: Yes I have reviewed all pertinent clinical information, including history, physical exam and plan: Yes Notes (Text): 11/19/16 16:05 86 year old female with past medical history of NSTEMI, hypothyroidism, hypertension and dementia who presented from [place] with cellulitis and ?DVT ( outpatient doppler showed right superficial femoral thrombus and possible left common vein thrombus). She is on iv antibiotics and lovenox. LE doppler was done yesterday for DVT confirmation. Report is pending. If positive will switch to eliquis as per cardiology. She is also on aspirin and plavix was discontinued as patient is currently on lovenox. Her TSH was elevated and her synthroid is increased. Sarah Rashid MD Hospitalist.
[2016-11-20] MEDS: Pantoprazole 40 mg EC Tab PO SCH (05:19)
[2016-11-20 06:53] LABS: BASO # 0.03 K/mm3 (0.0-2.0); BASO % 0.6 % (0.0-3.0); EOS # 0.3 (0.0-0.7); GRAN # 2.76 (1.4-6.5); GRAN % 56.8 % (50.0-68.0); HEMATOCRIT 36.5 % (36.0-48.0); LYMPH # 1.2 (1.2-3.4); LYMPH % 24.7 % (22.0-35.0); MEAN CELL VOLUME 97.3 fl (80.0-105.0); MEAN CORPUSCULAR HEMOGLOBIN 31.7 pg (25.0-35.0); MEAN CORPUSCULAR HGB CONC 32.6 g/dl (31.0-37.0); MONO # 0.6 (0.1-0.6); MONO % 11.9 % (1.0-6.0); RED CELL DISTRIBUTION WIDTH 13.9 % (11.5-14.5); WHITE BLOOD COUNT 4.9 10^3/ul (4.5-11.0)
[2016-11-20 06:56] LABS: ALB/GLOB RATIO 1.1 (1.1-1.8); BILIRUBIN,TOTAL 0.4 mg/dL (0.2-1.3); CALCIUM 7.9 mg/dL (8.4-10.5); TOTAL PROTEIN 6.7 g/dL (5.8-8.3)
[2016-11-20 06:57] LABS: INR 1.02 (0.93-1.08)
[2016-11-20] MEDS ORDERED: Levothyroxine 125 MCG TAB PO SCH (07:30)
[2016-11-20] MEDS ORDERED: Levothyroxine 100 MCG TAB PO SCH (07:30)
[2016-11-20] MEDS: Enoxaparin 80 mg Syringe SC SCH ×2 (07:37→17:29)
[2016-11-20 08:13] VITALS: RESP 18; TEMP 97.5
[2016-11-20] MEDS: Potassium Chloride 10 mEq ER Tab PO SCH (09:15)
[2016-11-20] MEDS: cefTRIAXone 1 gm 1 GM/100 ML BAG IVPB SCH (09:16)
[2016-11-20] MEDS: DiphenhydrAMINE 1% 1 EA TUBE TOP PRN (10:20)
--- NOTE | 2016-11-20 11:45 | CP.PCM.PN ---
<BRYSON SHEPARD - Last Filed: 11/20/16 11:42> Subjective - Date & Time of Evaluation Date of Evaluation: 11/20/16 Time of Evaluation: 11:42 - Subjective Subjective: Medicine Progress Note: Pt seen and examined at bedside. Pt denies any acute overnight events. Pt states she feels itchy all over. Pt denies LE pain, CP, SOB, fevers, chills, abdominal pain, dysuria, or polyuria. Objective - Vital Signs/Intake and Output Vital Signs (last 24 hours): Temp Pulse Resp BP Pulse Ox 97.5 F L 63 18 153/65 H 89 L 11/20/16 08:11 11/20/16 09:14 11/20/16 08:11 11/20/16 09:14 11/20/16 08:11 Intake and Output: 11/20/16 11/20/16 06:59 18:59 Intake Total 360 Balance 360 - Medications Medications: Current Medications Acetaminophen (Tylenol 325mg Tab) 650 mg PO Q6H PRN PRN Reason: Pain, moderate (4-7) Aspirin (Aspirin Chewable) 81 mg PO DAILY [facility] Last Admin: 11/20/16 09:15 Dose: 81 mg Atorvastatin Calcium (Lipitor) 10 mg PO DAILY [facility] Last Admin: 11/20/16 09:15 Dose: 10 mg Diphenhydramine HCl (Benadryl Maximum Strength 1%) 0 ea TOP Q6H PRN PRN Reason: Itching / Pruritus Last Admin: 11/20/16 10:20 Dose: 1 appl Diphenhydramine HCl (Benadryl) 25 mg PO Q6 PRN PRN Reason: Itching / Pruritus Donepezil HCl (Aricept) 10 mg PO HS [facility] Last Admin: 11/19/16 21:27 Dose: 10 mg Enoxaparin Sodium (Lovenox) 80 mg SC Q12H [facility] PRN Reason: Protocol Last Admin: 11/20/16 07:37 Dose: 80 mg Ferrous Gluconate (Fergon) 324 mg PO DAILY [facility] Last Admin: 11/20/16 09:13 Dose: 324 mg Fluconazole (Diflucan) 100 mg PO DAILY [facility] PRN Reason: Protocol Stop: 11/24/16 10:00 Last Admin: 11/20/16 09:12 Dose: 100 mg Furosemide (Lasix) 40 mg PO DAILY [facility] Last Admin: 11/20/16 09:13 Dose: 40 mg Ceftriaxone Sodium (Rocephin 1 Gram Ivpb) 1 gm in 100 mls @ 100 mls/hr IVPB DAILY [facility] PRN Reason: Protocol Last Admin: 11/20/16 09:16 Dose: 100 mls/hr Isosorbide Mononitrate (Imdur) 30 mg PO DAILY [facility] Last Admin: 11/20/16 09:15 Dose: 30 mg Levothyroxine Sodium (Synthroid) 125 mcg PO ACB [facility] Last Admin: 11/20/16 08:05 Dose: 125 mcg Lorazepam (Ativan) 0.5 mg PO HS [facility] PRN Reason: Protocol Last Admin: 11/19/16 21:27 Dose: 0.5 mg Metoprolol Tartrate (Lopressor) 50 mg PO DAILY [facility] Last Admin: 11/20/16 09:14 Dose: 50 mg Morphine Sulfate (Morphine) 2 mg IVP Q4H PRN PRN Reason: Pain, severe (8-10) Pantoprazole Sodium (Protonix Ec Tab) 40 mg PO 0600 [facility] Last Admin: 11/20/16 05:19 Dose: 40 mg Potassium Chloride (Klor-Con 10) 10 meq PO DAILY [facility] Last Admin: 11/20/16 09:15 Dose: 10 meq - Labs Labs: 11/20/16 06:00 11/20/16 06:00 PT 11.0 Seconds (9.9-11.8) 11/20/16 06:00 INR 1.02 (0.93-1.08) 11/20/16 06:00 APTT 29.7 Seconds (23.7-30.8) 11/18/16 03:17 - Constitutional Appears: No Acute Distress - Head Exam Head Exam: ATRAUMATIC, NORMOCEPHALIC - Eye Exam Eye Exam: EOMI, PERRL - ENT Exam ENT Exam: Mucous Membranes Moist - Neck Exam Neck Exam: Full ROM. absent: Lymphadenopathy, Tenderness, Thyromegaly - Respiratory Exam Respiratory Exam: Clear to Ausculation Bilateral. absent: Rales, Rhonchi, Wheezes - Cardiovascular Exam Cardiovascular Exam: RRR, +S1, +S2. absent: Gallop, Rubs, Murmur - GI/Abdominal Exam GI & Abdominal Exam: Soft. absent: Distended, Guarding, Tenderness, Organomegaly, Rebound - Extremities Exam Extremities Exam: Pedal Edema. absent: Tenderness Additional comments: Decreased hyperthermia, erythema, and swelling b/l LE - Back Exam Back Exam: NORMAL INSPECTION - Neurological Exam Neurological Exam: Alert, Awake, Oriented x3 - Psychiatric Exam Psychiatric exam: Normal Affect, Normal Mood - Skin Skin Exam: Dry, Intact, Normal Color, Warm Assessment and Plan - Assessment and Plan (Free Text) Assessment: 86 year old female with PMH sig for DVT, NSTEMI, hypothyroidism, HLD, anxiety, HTN, CHF and dementia who is admitted for evaluation and treatment for cellulitis of lower extremities and b/l LE DVT. Plan: 1. B/L LE DVT - Lovenox 80 mg SC Q12H - Cardiology consulted, recommendations appreciated, d/c plavix - F/u official read for repeat venous doppler - Per cardio, if DVT positive will start Eliquis - Outpatient doppler u/s positive for thrombus in Right superficial femoral vein , with possible left common vein thrombus - Pain management with morphine, pt has not required 2. Cellulitis - Lower extremity bilateral erythema and pruritis - Satellite lesions noted on exam - Suspect secondary to cellulitis vs. fungal origin - Ceftriaxone 1 gm IVPB - Fluconazole 100mg Daily for 7 days - PO benadryl for pruritis 3. Hypothyroidism - TSH 20.20 - Free T4 0.51 - Increased Synthroid to 125 mcg 4. Hx of CHF - continue home meds 5. Hx of Anxiety - continue home meds 6. Hx of HLD - continue home meds 7. GI ppx - Protonix Case reviewed and discussed with Dr Rashid. <Sarah Rashid - Last Filed: 11/20/16 12:08> Objective - Vital Signs/Intake and Output Vital Signs (last 24 hours): Temp Pulse Resp BP Pulse Ox 97.5 F L 63 18 153/65 H 89 L 11/20/16 08:11 11/20/16 09:14 11/20/16 08:11 11/20/16 09:14 11/20/16 08:11 Intake and Output: 11/20/16 11/20/16 06:59 18:59 Intake Total 360 Balance 360 - Medications Medications: Current Medications Acetaminophen (Tylenol 325mg Tab) 650 mg PO Q6H PRN PRN Reason: Pain, moderate (4-7) Aspirin (Aspirin Chewable) 81 mg PO DAILY [facility] Last Admin: 11/20/16 09:15 Dose: 81 mg Atorvastatin Calcium (Lipitor) 10 mg PO DAILY [facility] Last Admin: 11/20/16 09:15 Dose: 10 mg Diphenhydramine HCl (Benadryl Maximum Strength 1%) 0 ea TOP Q6H PRN PRN Reason: Itching / Pruritus Last Admin: 11/20/16 10:20 Dose: 1 appl Donepezil HCl (Aricept) 10 mg PO HS [facility] Last Admin: 11/19/16 21:27 Dose: 10 mg Enoxaparin Sodium (Lovenox) 80 mg SC Q12H [facility] PRN Reason: Protocol Last Admin: 11/20/16 07:37 Dose: 80 mg Ferrous Gluconate (Fergon) 324 mg PO DAILY [facility] Last Admin: 11/20/16 09:13 Dose: 324 mg Fluconazole (Diflucan) 100 mg PO DAILY [facility] PRN Reason: Protocol Stop: 11/24/16 10:00 Last Admin: 11/20/16 09:12 Dose: 100 mg Furosemide (Lasix) 40 mg PO DAILY [facility] Last Admin: 11/20/16 09:13 Dose: 40 mg Ceftriaxone Sodium (Rocephin 1 Gram Ivpb) 1 gm in 100 mls @ 100 mls/hr IVPB DAILY [facility] PRN Reason: Protocol Last Admin: 11/20/16 09:16 Dose: 100 mls/hr Isosorbide Mononitrate (Imdur) 30 mg PO DAILY [facility] Last Admin: 11/20/16 09:15 Dose: 30 mg Levothyroxine Sodium (Synthroid) 125 mcg PO ACB [facility] Last Admin: 11/20/16 08:05 Dose: 125 mcg Lorazepam (Ativan) 0.5 mg PO HS [facility] PRN Reason: Protocol Last Admin: 11/19/16 21:27 Dose: 0.5 mg Metoprolol Tartrate (Lopressor) 50 mg PO DAILY [facility] Last Admin: 11/20/16 09:14 Dose: 50 mg Morphine Sulfate (Morphine) 2 mg IVP Q4H PRN PRN Reason: Pain, severe (8-10) Pantoprazole Sodium (Protonix Ec Tab) 40 mg PO 0600 [facility] Last Admin: 11/20/16 05:19 Dose: 40 mg Potassium Chloride (Klor-Con 10) 10 meq PO DAILY [facility] Last Admin: 11/20/16 09:15 Dose: 10 meq - Labs Labs: 11/20/16 06:00 11/20/16 06:00 PT 11.0 Seconds (9.9-11.8) 11/20/16 06:00 INR 1.02 (0.93-1.08) 11/20/16 06:00 APTT 29.7 Seconds (23.7-30.8) 11/18/16 03:17 Attending/Attestation - Attestation I have personally seen and examined this patient.: Yes I have fully participated in the care of the patient.: Yes I have reviewed all pertinent clinical information, including history, physical exam and plan: Yes Notes (Text): 11/20/16 12:03 86 year old female with past medical history of NSTEMI, hypothyroidism, hypertension and dementia who presented from [place] with cellulitis and ?DVT ( outpatient doppler showed right superficial femoral thrombus and possible left common vein thrombus). She was started on lovenox while awaiting official lower extremity doppler report. If study is positive for DVT will switch to eliquis. Patient has history of hypertension and NSTEMI in the past. Cardiology is following the patient. She is on aspirin and her plavix was discontinued as she is anticoagulation with lovenox. She is on iv ceftriaxone for LE cellulitis which is improving. Her TSH was elevated and her synthroid is increased. Sarah Rashid MD Hospitalist.
--- NOTE | 2016-11-20 15:43 | US ---
HISTORY: Leg pain and swelling. Evaluate for DVT PHYSICIAN(S): Nomi Mohr MD. TECHNIQUE: Duplex sonography and color-flow Doppler with graded compression were used to evaluate the deep venous systems of both lower extremities. The tibial veins are not well seen. FINDINGS: The visualized deep venous systems of both lower extremities are sonographically normal and compressible. Normal wave forms and augmentation are seen. There is no sonographic evidence for deep venous thrombosis in the visualized segments of both lower extremities. IMPRESSION: No sonographic evidence for deep venous thrombosis in the visualized segments of both lower extremities. Limited study
--- NOTE | 2016-11-20 21:26 | PN ---
DATE: 11/20/2016 SUBJECTIVE: The patient denies any chest pain, wanted to go back to jail as soon as possible. PHYSICAL EXAMINATION: GENERAL: The patient is sitting in the bed, not in apparent distress. VITAL SIGNS: As follows, temperature afebrile, heart rate 60, blood pressure 143/60. HEENT: PERRLA. Extraocular muscles intact. NECK: Supple. No carotid bruit, JVD, or thyromegaly. CHEST: Clear to auscultation. HEART: S1 and S2 regular. ABDOMEN Soft. EXTREMITIES: Clubbing and cyanosis negative. LABORATORY DATA: Blood workup as follows: WBC 4.9, hemoglobin 11.9, hematocrit 36.5, platelet count 194. Chemistries show sodium 137, potassium 4, chloride 100, carbon dioxide 26, anion gap of 15, BUN of 21, creatinine 1.2. TSH 20.2. IMPRESSION: Hypothyroidism, morbid obesity, severe aortic stenosis. Transferred to jail, possible rule out deep venous thrombosis. RECOMMENDATION: Started on Lovenox 1 mg/kg q.12 hours. Once the official reading is available for new DVT, then we will start Eliquis 10 mg b.i.d. for 7 days minus remaining treated with IV Lovenox followed by 5 mg b.i.d. The patient's last echo shows trace aortic regurgitation, severe aortic stenosis, valve area 0.5 cm2, [id number] mitral regurgitation, trace tricuspid regurgitation, critical aortic stenosis and asymptomatic. Discussed with the son. We will increase *------* Levoxyl to 150 mcg patient was at jail on 100 mcg and showed severe hypothyroidism, so we will increase to 175 mcg daily. We will follow with you. Thank you Dr. Rashid for providing us the opportunity in taking care of the patient, Teresa Rojo. Karlie Mace MD
[2016-11-21] MEDS: Pantoprazole 40 mg EC Tab PO SCH (05:35)
[2016-11-21] MEDS: Enoxaparin 80 mg Syringe SC SCH (05:35)
[2016-11-21] MEDS ORDERED: Levothyroxine 175 MCG TAB PO SCH (06:00)
[2016-11-21 06:45] LABS: BASO # 0.06 K/mm3 (0.0-2.0); BASO % 1.1 % (0.0-3.0); EOS # 0.3 (0.0-0.7); EOS % 5.8 % (1.5-5.0); GRAN # 2.96 (1.4-6.5); GRAN % 52.2 % (50.0-68.0); HEMATOCRIT 37.2 % (36.0-48.0); LYMPH # 1.6 (1.2-3.4); LYMPH % 28.7 % (22.0-35.0); MEAN CELL VOLUME 97.4 fl (80.0-105.0); MEAN CORPUSCULAR HEMOGLOBIN 32.5 pg (25.0-35.0); MEAN CORPUSCULAR HGB CONC 33.3 g/dl (31.0-37.0); MONO # 0.7 (0.1-0.6); MONO % 12.2 % (1.0-6.0); RED CELL DISTRIBUTION WIDTH 14.1 % (11.5-14.5); WHITE BLOOD COUNT 5.7 10^3/ul (4.5-11.0)
[2016-11-21 06:52] LABS: INR 1.03 (0.93-1.08)
[2016-11-21 07:15] LABS: ALB/GLOB RATIO 1.2 (1.1-1.8); BILIRUBIN,TOTAL 0.3 mg/dL (0.2-1.3); CALCIUM 8.4 mg/dL (8.4-10.5); POTASSIUM 4.3 mmol/L (3.6-5.0); TOTAL PROTEIN 6.7 g/dL (5.8-8.3)
[2016-11-21 07:33] VITALS: BP 121/71; PULSE 71; O2SAT 84
[2016-11-21] MEDS ORDERED: Nystatin 100,000 Units/gm Topical Pow(15 gm) TOP SCH (10:00)
[2016-11-21] MEDS: Potassium Chloride 10 mEq ER Tab PO SCH (10:08)
[2016-11-21] MEDS: cefTRIAXone 1 gm 1 GM/100 ML BAG IVPB SCH (10:08)
--- NOTE | 2016-11-21 13:30 | CP.PCM.DIS ---
<BRYSON SHEPARD - Last Filed: 11/21/16 13:15> Provider - Provider Date of Admission: 11/18/16 03:54 Attending physician: Sarah Rashid MD Consults: Cardio: Rodri Time Spent in preparation of Discharge (in minutes): 45 Hospital Course - Lab Results Lab Results: Most Recent Lab Values WBC 5.7 10^3/ul (4.5-11.0) 11/21/16 06:15 RBC 3.82 10^6/uL (3.5-6.1) 11/21/16 06:15 Hgb 12.4 g/dL (12.0-16.0) 11/21/16 06:15 Hct 37.2 % (36.0-48.0) 11/21/16 06:15 MCV 97.4 fl (80.0-105.0) 11/21/16 06:15 MCH 32.5 pg (25.0-35.0) 11/21/16 06:15 MCHC 33.3 g/dl (31.0-37.0) 11/21/16 06:15 RDW 14.1 % (11.5-14.5) 11/21/16 06:15 Plt Count 217 10^3/uL (120.0-450.0) 11/21/16 06:15 MPV 10.0 fl (7.0-11.0) 11/21/16 06:15 Gran % 52.2 % (50.0-68.0) 11/21/16 06:15 Lymph % (Auto) 28.7 % (22.0-35.0) 11/21/16 06:15 [place] % (Auto) 12.2 % (1.0-6.0) H 11/21/16 06:15 Eos % (Auto) 5.8 % (1.5-5.0) H 11/21/16 06:15 Baso % (Auto) 1.1 % (0.0-3.0) 11/21/16 06:15 Gran # 2.96 (1.4-6.5) 11/21/16 06:15 Lymph # 1.6 (1.2-3.4) 11/21/16 06:15 [place] # 0.7 (0.1-0.6) H 11/21/16 06:15 Eos # 0.3 (0.0-0.7) 11/21/16 06:15 Baso # 0.06 K/mm3 (0.0-2.0) 11/21/16 06:15 PT 11.1 Seconds (9.9-11.8) 11/21/16 06:15 INR 1.03 (0.93-1.08) 11/21/16 06:15 APTT 29.7 Seconds (23.7-30.8) 11/18/16 03:17 Sodium 137 mmol/L (132-148) 11/21/16 06:15 Potassium 4.3 mmol/L (3.6-5.0) 11/21/16 06:15 Chloride 99 mmol/L (98-107) 11/21/16 06:15 Carbon Dioxide 29 mmol/L (21-33) 11/21/16 06:15 Anion Gap 13 (10-20) 11/21/16 06:15 BUN 23 mg/dL (7-21) H 11/21/16 06:15 Creatinine 1.3 mg/dL (0.5-1.4) 11/21/16 06:15 Est GFR ( Amer) 47 11/21/16 06:15 Est GFR (Non-Af Amer) 39 11/21/16 06:15 Random Glucose 95 mg/dL (70-110) 11/21/16 06:15 Hemoglobin A1c 6.6 % (4.2-6.5) H 11/19/16 07:33 Calcium 8.4 mg/dL (8.4-10.5) 11/21/16 06:15 Phosphorus 3.4 mg/dL (2.5-4.5) 11/19/16 07:33 Magnesium 2.0 mg/dL (1.7-2.2) 11/19/16 07:33 Total Bilirubin 0.3 mg/dL (0.2-1.3) 11/21/16 06:15 AST 38 U/L (15-39) 11/21/16 06:15 ALT 30 U/L (7-56) 11/21/16 06:15 Alkaline Phosphatase 88 U/L (38-133) 11/21/16 06:15 Total Protein 6.7 g/dL (5.8-8.3) 11/21/16 06:15 Albumin 3.7 g/dL (3.0-4.8) 11/21/16 06:15 Globulin 3.0 gm/dL 11/21/16 06:15 Albumin/Globulin Ratio 1.2 (1.1-1.8) 11/21/16 06:15 Triglycerides 171 mg/dL (35-160) H 11/19/16 07:33 Cholesterol 188 mg/dL (130-200) 11/19/16 07:33 LDL Cholesterol Direct 110 mg/dL (0-129) 11/19/16 07:33 HDL Cholesterol 37 mg/dL (29-60) 11/19/16 07:33 Free T4 0.51 ng/dL (0.78-2.19) L 11/19/16 08:54 TSH 3rd Generation 20.20 mIU/mL (0.46-4.68) H 11/20/16 06:00 - Hospital Course Hospital Course: Pt is a 86 year old female with PMH sig for DVT, NSTEMI, hypothyroidism, HLD, anxiety, HTN, CHF and dementia who presents to the ED from [facility] complaining of lower leg edema and redness. The patient was sent to [facility] by Dr. Cummins for further evaluation after lower extremity venous dopplers were positive for right superficial femoral thrombus with possible left common vein thrombus. She reports noticing her leg edema and redness for the past month. According to chart notes sent with patient from [place] she has was scheduled to receive Augmentin for lower extremity cellulitis. Patient possibly received 2 days of antibiotic. She indicates that her legs are itchy and are painful to touch with the right leg being more sensitive then the left. Patient denies chest pain, shortness of breath, fever, chills, nausea, vomiting, loss of feeling in her lower extremities, or other complaints. In the ED, labs and imaging were obtained. Labs were unremarkable. EKG shows NSR and LVH. CXR was negative. Pt was admitted to med/surg for evaluation and treatment for b/l LE DVT and b/l LE cellulitis. Pt was started on IV rocephin and fluconazole for b/l LE cellulitis vs fungal skin infection. Cardiology was consulted, who recommended starting patient on lovenox and holding plavix. Repeat venous doppler was obtained, which showed that there was no DVT in either leg. Also during hospital course, TSH was found to be elevated at 17.8. Per cardio, patient synthroid was increased to 175 mcg. Today, the patient was seen and examined at bedside. Pt denied any acute overnight events. Pt states that b/l legs felt better. On exam, b/l had greatly reduced swelling/edema and erythema. As repeat US showed DVT, lovenox will be discontinued and patient will be discharged back to her nursing facility with prescription for PO keflex , synthroid, lisinopril and lopressor as well as resume her home medications. 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 Discharge Exam - Head Exam Head Exam: ATRAUMATIC, NORMOCEPHALIC - Eye Exam Eye Exam: EOMI, PERRL - ENT Exam ENT Exam: Mucous Membranes Moist - Neck Exam Neck exam: Full Rom - Respiratory Exam Respiratory Exam: Clear to PA & Lateral. absent: Rales, Rhonchi, Wheezes - Cardiovascular Exam Cardiovascular Exam: RRR, +S1, +S2, Systolic Murmur. absent: Gallop, Rubs - GI/Abdominal Exam GI & Abdominal Exam: Soft. absent: Distended, Guarding, Rebound, Rigid, Tenderness - Extremities Exam Extremities exam: tenderness Additional comments: decreased erythema and swelling b/l LE - Neurological Exam Neurological exam: Alert, CN II-XII Intact, Oriented x3 - Psychiatric Exam Psychiatric exam: Normal Affect, Normal Mood - Skin Skin Exam: Dry, Intact, Normal Color, Warm Discharge Plan - Discharge Medications Prescriptions: Cephalexin [Keflex] 500 mg PO BID #20 capsule Levothyroxine [Synthroid] 175 mcg PO ACB #14 tab Lisinopril [Zestril] 5 mg PO DAILY #30 tab Metoprolol Succinate 50 mg PO DAILY #30 tab.er.24h - Follow Up Plan Condition: STABLE Disposition: TRANSF TO [facility] Instructions: Pulmonary Embolism (DC), Pulmonary Embolism (GEN), Cellulitis (DC ), Cellulitis (GEN), Deep Venous Thrombosis (ED), Deep Venous Thrombosis (DC), Deep Venous Thrombosis (GEN), Leg Edema (ED) Additional Instructions: 1. Discharge to [facility] 2. Follow up with PMD within 1 week 3. 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 Take medications as prescribed 5. Return to ED, if symptoms worsen including increased swelling, edema, redness , and pain of the lower extremities Referrals: Karlie Mace MD [Staff Provider] - <Omar Pedroza - Last Filed: 12/21/16 13:57> Provider - Provider Date of Admission: 11/18/16 03:54 Attending physician: Sarah Rashid MD Hospital Course - Lab Results Lab Results: Most Recent Lab Values WBC 5.7 10^3/ul (4.5-11.0) 11/21/16 06:15 RBC 3.82 10^6/uL (3.5-6.1) 11/21/16 06:15 Hgb 12.4 g/dL (12.0-16.0) 11/21/16 06:15 Hct 37.2 % (36.0-48.0) 11/21/16 06:15 MCV 97.4 fl (80.0-105.0) 11/21/16 06:15 MCH 32.5 pg (25.0-35.0) 11/21/16 06:15 MCHC 33.3 g/dl (31.0-37.0) 11/21/16 06:15 RDW 14.1 % (11.5-14.5) 11/21/16 06:15 Plt Count 217 10^3/uL (120.0-450.0) 11/21/16 06:15 MPV 10.0 fl (7.0-11.0) 11/21/16 06:15 Gran % 52.2 % (50.0-68.0) 11/21/16 06:15 Lymph % (Auto) 28.7 % (22.0-35.0) 11/21/16 06:15 [place] % (Auto) 12.2 % (1.0-6.0) H 11/21/16 06:15 Eos % (Auto) 5.8 % (1.5-5.0) H 11/21/16 06:15 Baso % (Auto) 1.1 % (0.0-3.0) 11/21/16 06:15 Gran # 2.96 (1.4-6.5) 11/21/16 06:15 Lymph # 1.6 (1.2-3.4) 11/21/16 06:15 [place] # 0.7 (0.1-0.6) H 11/21/16 06:15 Eos # 0.3 (0.0-0.7) 11/21/16 06:15 Baso # 0.06 K/mm3 (0.0-2.0) 11/21/16 06:15 PT 11.1 Seconds (9.9-11.8) 11/21/16 06:15 INR 1.03 (0.93-1.08) 11/21/16 06:15 APTT 29.7 Seconds (23.7-30.8) 11/18/16 03:17 Sodium 137 mmol/L (132-148) 11/21/16 06:15 Potassium 4.3 mmol/L (3.6-5.0) 11/21/16 06:15 Chloride 99 mmol/L (98-107) 11/21/16 06:15 Carbon Dioxide 29 mmol/L (21-33) 11/21/16 06:15 Anion Gap 13 (10-20) 11/21/16 06:15 BUN 23 mg/dL (7-21) H 11/21/16 06:15 Creatinine 1.3 mg/dL (0.5-1.4) 11/21/16 06:15 Est GFR ( Amer) 47 11/21/16 06:15 Est GFR (Non-Af Amer) 39 11/21/16 06:15 Random Glucose 95 mg/dL (70-110) 11/21/16 06:15 Hemoglobin A1c 6.6 % (4.2-6.5) H 11/19/16 07:33 Calcium 8.4 mg/dL (8.4-10.5) 11/21/16 06:15 Phosphorus 3.4 mg/dL (2.5-4.5) 11/19/16 07:33 Magnesium 2.0 mg/dL (1.7-2.2) 11/19/16 07:33 Total Bilirubin 0.3 mg/dL (0.2-1.3) 11/21/16 06:15 AST 38 U/L (15-39) 11/21/16 06:15 ALT 30 U/L (7-56) 11/21/16 06:15 Alkaline Phosphatase 88 U/L (38-133) 11/21/16 06:15 Total Protein 6.7 g/dL (5.8-8.3) 11/21/16 06:15 Albumin 3.7 g/dL (3.0-4.8) 11/21/16 06:15 Globulin 3.0 gm/dL 11/21/16 06:15 Albumin/Globulin Ratio 1.2 (1.1-1.8) 11/21/16 06:15 Triglycerides 171 mg/dL (35-160) H 11/19/16 07:33 Cholesterol 188 mg/dL (130-200) 11/19/16 07:33 LDL Cholesterol Direct 110 mg/dL (0-129) 11/19/16 07:33 HDL Cholesterol 37 mg/dL (29-60) 11/19/16 07:33 Free T4 0.51 ng/dL (0.78-2.19) L 11/19/16 08:54 TSH 3rd Generation 20.20 mIU/mL (0.46-4.68) H 11/20/16 06:00 Attending/Attestation - Attestation I have personally seen and examined this patient.: Yes I have fully participated in the care of the patient.: Yes I have reviewed all pertinent clinical information, including history, physical exam and plan: Yes Notes (Text): Pt was admitted to med/surg for evaluation and treatment for b/l LE DVT and b/ l LE cellulitis. Pt was started on IV rocephin and fluconazole for b/l LE cellulitis vs fungal skin infection. Cardiology was consulted, who recommended starting patient on lovenox and holding plavix. Repeat venous doppler was obtained, which showed that there was no DVT in either leg. Also during hospital course, TSH was found to be elevated at 17.8. Per cardio, patient synthroid was increased to 175 mcg. Today, the patient was seen and examined at bedside. Pt denied any acute overnight events. Pt states that b/l legs felt better. On exam, b/l had greatly reduced swelling/edema and erythema. As repeat US showed NO DVT, lovenox will be discontinued and patient will be discharged back to her nursing facility with prescription for PO keflex, synthroid, lisinopril and lopressor as well as resume her home medications. 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
--- NOTE | 2016-11-21 18:50 | PN ---
DATE OF PROGRESS NOTE: 11/21/2016 LOCATION: The patient in room 562, bed 1. REASON FOR CONSULTATION: Chest pain. SUBJECTIVE: The patient denies any chest pain, shortness of breath, patient lying flat in bed. Denies any palpitations. PHYSICAL EXAMINATION: VITAL SIGNS: Blood pressure 121/71, respirations 18, pulse 71, and temperature 97.5. HEENT: Head is normocephalic. Eyes, pupils normal. Conjunctivae normal. Nose and throat normal. NECK: JVP low. Carotids equal. Thorax, AP diameter normal. LUNGS: No significant rales. CARDIOVASCULAR: S1 and S2. ABDOMEN: Soft and nontender. No organomegaly. Bowel sounds normal. EXTREMITIES: No clubbing. No cyanosis. LABORATORY DATA: WBC 5.7, hemoglobin 12.4, hematocrit 37.2, and platelet 217. Sodium 137, potassium 4.3, BUN 23, and creatinine 1.3. AST, ALT, total protein, albumin normal. TSH 20.20. DIAGNOSES: Hypothyroidism, morbid obesity, severe aortic stenosis. Ultrasound, no evidence of deep venous thrombosis at the present movement. The patient clinically stable and patient is on Aricept 10 mg at bedtime, Diflucan 100 mg daily, isosorbide mononitrate 30 mg daily, potassium 10 mg daily, furosemide 40 mg daily, Lipitor 10 mg daily, metoprolol tartrate 50 mg daily, levothyroxine 175 mcg p.o. daily, Rocephin 1 g IV daily. Will continue present therapy. We will follow with you. Karlie Dunn MD
== END 2016-11-21 15:16 | DRG 300 ==
LOC: ED 01:08 → ERH 03:54 → 5RNO 05:50
PROVIDERS: ADMIT Internal Medicine; ATTEND Internal Medicine
DX: I82.411 Acute embolism and thrombosis of right femoral vein (principal); L03.116 Cellulitis of left lower limb; I42.9 Cardiomyopathy, unspecified; L03.115 Cellulitis of right lower limb; I11.0 Hypertensive heart disease with heart failure; I50.9 Heart failure, unspecified; F03.90 Unspecified dementia, unspecified severity, without behavioral disturbance, psychotic disturbance, mood disturbance, and anxiety; E03.9 Hypothyroidism, unspecified; E78.5 Hyperlipidemia, unspecified; F41.9 Anxiety disorder, unspecified; I25.10 Atherosclerotic heart disease of native coronary artery without angina pectoris; I08.3 Combined rheumatic disorders of mitral, aortic and tricuspid valves; L30.9 Dermatitis, unspecified; E66.01 Morbid (severe) obesity due to excess calories; K21.9 Gastro-esophageal reflux disease without esophagitis; I25.2 Old myocardial infarction; Z68.30 Body mass index [BMI] 30.0-30.9, adult; Z79.82 Long term (current) use of aspirin; Z86.73 Personal history of transient ischemic attack (TIA), and cerebral infarction without residual deficits; Z91.81 History of falling

== ENCOUNTER 2017-02-13 15:34 | Inpatient (IN) | payer MEDICARE ==
[2017-02-13 15:49] VITALS: BMI 29.1
--- NOTE | 2017-02-13 17:29 | ED PDOC ---
Arrival/HPI - General Historian: Patient, Residential - General Chief Complaint: Medical Clearance Time Seen by Provider: 02/13/17 15:43 - History of Present Illness Narrative History of Present Illness (Text): 02/13/17 17:28 86-year-old female sent in from skilled nursing for right leg pain and swelling. Patient denies any trauma or injury. Pt c/o pruritis to entire body and pain in right leg. c/o occasional sob. no CP. No dizziness. no abdominal pain. History is limited by hx of dementia. (Angelina Hernández) Past Medical History - Provider Review Nursing Documentation Reviewed: Yes - Travel History Have you recently traveled outside [place] w/in the past 3 mons?: No - Infectious Disease Hx of Infectious Diseases: None - Tetanus Immunization Tetanus Immunization: Unknown - Reproductive Menopause: Yes - Cardiac Hx Cardiac Disorders: Yes (Heart murmur) Hx Hypertension: Yes - Pulmonary Hx Respiratory Disorders: No - Neurological Hx Neurological Disorder: Yes HX Cerebrovascular Accident: Yes Hx Dementia: Yes Other/Comment: difff walking - HEENT Hx HEENT Disorder: No - Renal Hx Renal Disorder: No - Endocrine/Metabolic Hx Endocrine Disorders: Yes Hx Hyperthyroidism: Yes - Hematological/Oncological Hx Blood Disorders: No - Integumentary Hx Dermatological Disorder: No - Musculoskeletal/Rheumatological Hx Falls: Yes - Gastrointestinal Hx Gastrointestinal Disorders: Yes (GERD CONSTIPATION,POOR APPETITE) - Genitourinary/Gynecological Hx Genitourinary Disorders: Yes Hx Reproductive Disorders: No - Psychiatric Hx Psychophysiologic Disorder: No Hx Anxiety: Yes Hx Depression: No Hx Emotional Abuse: No Hx Physical Abuse: No Hx Substance Use: No - Past Surgical History Past Surgical History: No Previous - Surgical History Hx Coronary Stent: Yes Hx Thyroidectomy: Yes Other/Comment: partial thyroidectomy many yrs ago - Anesthesia Hx Anesthesia: Yes Hx Anesthesia Reactions: No Hx Malignant Hyperthermia: No - Suicidal Assessment Feels Threatened In Home Enviroment: No Family/Social History - Physician Review Nursing Documentation Reviewed: Yes Family/Social History: Unknown Family HX Smoking Status: Never Smoked Hx Alcohol Use: No Hx Substance Use: No Hx Substance Use Treatment: No Allergies/Home Meds Allergies/Adverse Reactions: Allergies No Known Allergies Allergy (Verified 02/13/17 23:30) Home Medications: Home Meds Medication Instructions Recorded Confirmed Aspirin [[place] Aspirin] 81 mg PO DAILY 11/18/16 02/13/17 Atorvastatin Calcium 10 mg PO DAILY 11/18/16 02/13/17 Clopidogrel [Plavix] 75 mg PO DAILY 11/18/16 02/13/17 Donepezil HCl [Aricept] 10 mg PO HS 11/18/16 02/13/17 Ferrous Gluconate [Fergon] 324 mg PO DAILY 11/18/16 02/13/17 Furosemide [Lasix] 40 mg PO DAILY 11/18/16 02/13/17 Isosorbide Mononitrate ER [Imdur 30 mg PO DAILY 11/18/16 02/13/17 ER] LORazepam [Ativan] 0.5 mg PO HS 11/18/16 02/13/17 Potassium Chloride [Klor-Con 10] 10 meq PO DAILY 11/18/16 02/13/17 Review of Systems - Review of Systems Systems not reviewed;Unavailable: Dementia Constitutional: absent: Fatigue, Fevers Respiratory: SOB. absent: Cough Cardiovascular: absent: Chest Pain, Palpitations Gastrointestinal: absent: Abdominal Pain, Nausea, Vomiting Musculoskeletal: Arthralgias. absent: Back Pain Skin: Pruritis Neurological: absent: Headache, Dizziness Physical Exam Vital Signs Reviewed: Yes Temperature: Afebrile Blood Pressure: Normal Pulse: Regular Respiratory Rate: Normal Appearance: Positive for: Well-Appearing, Non-Toxic, Comfortable Pain Distress: None Mental Status: Positive for: Alert and Oriented X 3 - Systems Exam Head: Present: Atraumatic Mouth: Present: Moist Mucous Membranes Neck: Present: Normal Range of Motion Respiratory/Chest: Present: Rales, Rhonchi. No: Respiratory Distress, Accessory Muscle Use, Tachypneic Cardiovascular: Present: Regular Rate and Rhythm, Murmurs Abdomen: No: Tenderness, Distention, Rebound, Guarding Back: Present: Normal Inspection, Decubitus Ulcer Lower Extremity: Present: Edema (+2 pitting edema b/l), CALF TENDERNESS, Swelling, Erythema (+ minimal erythema noted to lower leg bilaterally with abrasions and dry skin noted. ), Neurovascularly Intact, Capillary Refill < 2 s. No: Normal ROM Neurological: Present: GCS=15 Skin: Present: Warm, Dry Psychiatric: Present: Alert Vital Signs Temp Pulse Resp BP Pulse Ox 02/13/17 21:21 110/75 02/13/17 19:03 130/75 02/13/17 19:02 62 18 130/75 98 02/13/17 15:50 97.6 F 73 18 121/72 95 Medical Decision Making ED Course and Treatment: 02/13/17 17:36 86yr old female with b/l lower leg swelling. O2 saturation 95% on 2L. cbc: wnl cmp bun; 30 BNP:3190 ekg; sinus bradycardia at [address] no [address] elevations venous duplex b/l lower legs; no dvt verbal report from [facility] tech. 02/13/17 18:23 cxr; ? right upper lobe mass ct chest ordered r/o mass:FINDINGS: LUNGS: Clear lungs. Visualized airway clear. MEDIASTINUM: Unremarkable thoracic aorta. No aneurysm. Cardiomegaly. No evidence of acute, significant cardiovascular disease. Dilated main pulmonary artery 3.8 cm in diameter consistent with pulmonary arterial hypertension. No lymphadenopathy. PLEURA: No pleural fluid. No pneumothorax. BONES: No fracture. No destructive lesion. UPPER ABDOMEN: Grossly unremarkable. OTHER FINDINGS: Tortuous great vessels likely accounting for the perception of right upper lobe mass. IMPRESSION: Unremarkable non-contrast enhanced CT of the chest. Specifically no lung mass or soft tissue abnormality of the current study. lasix 20mg given IV 02/13/17 18:25 pt with stable vitals. 95-97% nasal canula 02/13/17 18:[address] de paz; accepts observational status admission to tele. impression; CHF exacerbation, leg swelling, admit observational status to tele. 02/13/17 18:51 (Angelina Hernández) - Lab Interpretations Lab Results: 02/13/17 17:45 02/13/17 17:45 Lab Results 02/13/17 17:45: Troponin I 0.01 D 02/13/17 17:45: WBC 5.5, RBC 4.16, Hgb 13.1, Hct 39.8, MCV 95.7, MCH 31.5, MCHC 32.9, RDW 13.0, Plt Count 199, MPV 10.1, Gran % 55.1, Lymph % (Auto) 24.1, [place] % (Auto) 13.2 H, Eos % (Auto) 6.9 H, Baso % (Auto) 0.7, Gran # 3.01, Lymph # 1.3 , Page # 0.7 H, Eos # 0.4, Baso # 0.04 02/13/17 17:45: Sodium 141, Potassium 4.4, Chloride 101, Carbon Dioxide 30, Anion Gap 14, BUN 30 H, Creatinine 1.2, Est GFR ( Amer) 51, Est GFR (Non- Af Amer) 42, Random Glucose 110, Calcium 9.0, Total Bilirubin 0.5, AST 23, ALT 27, Alkaline Phosphatase 91, NT-Pro-B Natriuret Pep 3190 H, Total Protein 7.2, Albumin 3.9, Globulin 3.4, Albumin/Globulin Ratio 1.1 - RAD Interpretation Radiology Orders: 02/13/17 16:11 DUPLEX LOWER EXTRM VEIN BILAT [US] Stat 02/13/17 17:05 CHEST PORTABLE [RAD] Stat 02/13/17 18:21 CHEST W/O CONTRAST [CT] Stat - Medication Orders Current Medication Orders: Atorvastatin Calcium (Lipitor) 10 mg PO DAILY AMIRA Clopidogrel Bisulfate (Plavix) 75 mg PO DAILY AMIRA Diphenhydramine HCl (Benadryl) 25 mg PO Q6 PRN PRN Reason: Itching / Pruritus Last Admin: 02/13/17 21:30 Dose: 25 mg Donepezil HCl (Aricept) 10 mg PO HS AMIRA Last Admin: 02/13/17 22:55 Dose: 10 mg Ferrous Gluconate (Fergon) 324 mg PO DAILY AMIRA Furosemide (Lasix) 40 mg IVP Q12 AMIRA Last Admin: 02/13/17 21:21 Dose: 40 mg MAR Blood Pressure Document 02/13/17 21:21 TTC (Rec: 02/13/17 21:23 [facility] [id number]) Blood Pressure Blood Pressure (100/60-150/90) 110/75 IVP Administration Document 02/13/17 21:21 TTC (Rec: 02/13/17 21:23 [facility] / [id number]) Charges for Administration # of IVP Administrations 1 Isosorbide Mononitrate (Imdur Er) 30 mg PO DAILY AMIRA Levothyroxine Sodium (Synthroid) 175 mcg PO ACB AMIRA Lisinopril (Zestril) 5 mg PO DAILY AMIRA Lorazepam (Ativan) 0.5 mg PO HS AMIRA PRN Reason: Protocol Last Admin: 02/13/17 21:23 Dose: 0.5 mg Behavioural Document 02/13/17 21:23 TTC (Rec: 02/13/17 21:23 TTC [id number]) Maintenance Maintenance Dose Yes Nonmedicinal Nonmedicinal Interventions Redirect Behavior Behavior for Medication: Anxiety Re-Assess: Reassess Psych Meds Document 02/13/17 22:23 STM (Rec: 02/13/17 23:50 STM [id number]) Reassess Psych Med Effective Metoprolol Succinate (Toprol Xl) 50 mg PO DAILY AMIRA Pantoprazole Sodium (Protonix Ec Tab) 40 mg PO ACB AMIRA Potassium Chloride (Klor-Con 10) 10 meq PO DAILY AMIRA Discontinued Medications Furosemide (Lasix) 20 mg IVP STAT STA Stop: 02/13/17 18:17 Last Admin: 02/13/17 19:03 Dose: 20 mg MAR Blood Pressure Document 02/13/17 19:03 OCS (Rec: 02/13/17 19:03 OCS [facility] [id number]) Blood Pressure Blood Pressure (100/60-150/90) 130/75 IVP Administration Document 02/13/17 19:03 OCS (Rec: 02/13/17 19:03 OCS [facility] [id number]) Charges for Administration # of IVP Administrations 1 Heparin Sodium (Porcine) (Heparin) 5,000 units SC STAT STA PRN Reason: Protocol Stop: 02/13/17 20:11 Last Admin: 02/13/17 21:24 Dose: 5,000 units Subcutaneous Administrations Document 02/13/17 21:24 TTC (Rec: 02/13/17 21:24 TTC [id number]) Injection Site MAR Injection Site Right Abdomen Charges for Administration # of Subcutaneous Administrations 1 Disposition/Present on Arrival - Present on Arrival Any Indicators Present on Arrival: Yes History of DVT/PE: Yes History of Uncontrolled Diabetes: No Urinary Catheter: No History of Decub. Ulcer: No History Surgical Site Infection Following: None - Disposition Have Diagnosis and Disposition been Completed?: Yes Disposition Time: 18:30 Patient Plan: Observation - Disposition Diagnosis: CHF (congestive heart failure), Leg pain, Lower leg edema Disposition: HOSPITALIZED Patient Problems: Current Active Problems Problem Status Onset Leg pain Acute CHF (congestive heart failure) Acute Lower leg edema Acute Condition: FAIR
[2017-02-13 17:52] LABS: BASO # 0.04 K/mm3 (0.0-2.0); BASO % 0.7 % (0.0-3.0); EOS # 0.4 (0.0-0.7); EOS % 6.9 % (1.5-5.0); GRAN # 3.01 (1.4-6.5); GRAN % 55.1 % (50.0-68.0); HEMATOCRIT 39.8 % (36.0-48.0); LYMPH # 1.3 (1.2-3.4); LYMPH % 24.1 % (22.0-35.0); MEAN CELL VOLUME 95.7 fl (80.0-105.0); MEAN CORPUSCULAR HEMOGLOBIN 31.5 pg (25.0-35.0); MEAN CORPUSCULAR HGB CONC 32.9 g/dl (31.0-37.0); MEAN PLATELET VOLUME 10.1 fl (7.0-11.0); MONO # 0.7 (0.1-0.6); MONO % 13.2 % (1.0-6.0); WHITE BLOOD COUNT 5.5 10^3/ul (4.5-11.0)
[2017-02-13 18:03] LABS: ALB/GLOB RATIO 1.1 (1.1-1.8); BILIRUBIN,TOTAL 0.5 mg/dL (0.2-1.3); POTASSIUM 4.4 mmol/L (3.6-5.0); TOTAL PROTEIN 7.2 g/dL (5.8-8.3)
--- NOTE | 2017-02-13 18:21 | RAD ---
HISTORY: Lower leg swelling COMPARISON: 11/18/2016 FINDINGS: LUNGS: No active pulmonary disease. PLEURA: No significant pleural effusion identified, no pneumothorax apparent. CARDIOVASCULAR: No radiographic findings to suggest acute or significant cardiovascular disease. OSSEOUS STRUCTURES: No significant abnormalities. VISUALIZED UPPER ABDOMEN: Normal. OTHER FINDINGS: None. IMPRESSION: No active disease. No significant interval change compared to the prior examination(s).
--- NOTE | 2017-02-13 18:47 | CT ---
PROCEDURE: CT Chest without contrast HISTORY: ? mass right upper on xray COMPARISON: 11/18/2016, 02/13/2017 serial chest radiographs. TECHNIQUE: Contiguous axial images were obtained through the chest without intravenous contrast enhancement. Sagittal and coronal reconstructions were performed. Maximum intensity projection (MIP) reconstructed images in the following planes: Radiation dose (DLP): 638.92 mGy-cm. This CT exam was performed using one or more of the following dose reduction techniques: Automated exposure control, adjustment of the mA and/or kV according to patient size, and/or use of iterative reconstruction technique. FINDINGS: LUNGS: Clear lungs. Visualized airway clear. MEDIASTINUM: Unremarkable thoracic aorta. No aneurysm. Cardiomegaly. No evidence of acute, significant cardiovascular disease. Dilated main pulmonary artery 3.8 cm in diameter consistent with pulmonary arterial hypertension. No lymphadenopathy. PLEURA: No pleural fluid. No pneumothorax. BONES: No fracture. No destructive lesion. UPPER ABDOMEN: Grossly unremarkable. OTHER FINDINGS: Tortuous great vessels likely accounting for the perception of right upper lobe mass. IMPRESSION: Unremarkable non-contrast enhanced CT of the chest. Specifically no lung mass or soft tissue abnormality of the current study.
--- NOTE | 2017-02-13 18:55 | US ---
HISTORY: Leg pain and swelling. Evaluate for DVT PHYSICIAN(S): Nomi Mohr MD. TECHNIQUE: Duplex sonography and color-flow Doppler with graded compression were used to evaluate the deep venous systems of both lower extremities. The exam is somewhat limited by edema FINDINGS: The visualized deep venous systems of both lower extremities are sonographically normal and compressible. Normal wave forms and augmentation are seen. There is no sonographic evidence for deep venous thrombosis in the visualized segments of both lower extremities. IMPRESSION: No sonographic evidence for deep venous thrombosis in the visualized segments of both lower extremities.
[2017-02-13] MEDS ORDERED: DiphenhydrAMINE 12.5 mg/5 ml LIQ UD (5 ml) PO PRN (20:09)
--- NOTE | 2017-02-13 20:15 | CP.PCM.HP ---
<Arnol Canchola - Last Filed: 02/13/17 20:24> History of Present Illness - History of Present Illness History of Present Illness: CC: Abnormal venous doppler HPI: Patient is a 86 year old female with PMH sig for DVT, NSTEMI, hypothyroidism, HLD, anxiety, HTN, CHF and dementia who presents to the ED from [facility] status post abnormal venous doppler scan of her right lower extremity on 02/11/2017. The venous doppler was conducted after the patient reported pain in her right leg. Of note the patient has a history of lower extremity venous dopplers being positive for right superficial femoral thrombus with possible left common vein thrombus in November of 2016. The patient reports pain and itching sensation in her legs bilaterally. She reports the symptoms had been ongoing for the past month to two months. She denies any fever, chills, nausea, vomiting. While in the ED the patient received a venous doppler of her lower extremities that were negative for acute findings of thrombosis. While in ED patient was noted to have an elevated BNP of 3190 in the setting of bilateral pitting edema and has been admitted for suspected CHF exacerbation. Patient last known EF was 25-30% in 06/2015. Patient denies chest pain, abdominal pain, change in bowel, loss of bowel, dysuria, polyuria, dizziness, numbness or weakness. The patient is noted to be a poor historian and thus most of HPI is per chart review and handoff. PMH: As stated above PSH: denies FMH: denies SocHx: Tobacco: denies, ETOH: Denies, ID: Denies Allergies: NKDA Meds: See JUN PMD: Dr. Watson Present on Admission - Present on Admission History of DVT/PE: Yes History of Uncontrolled Diabetes: No Urinary Catheter: No Decubitus Ulcer Present: No Review of Systems - Review of Systems Review of Systems: 12 point ROS benign otherwise mentioned in HPI Past Patient History - Infectious Disease Hx of Infectious Diseases: None - Tetanus Immunizations Tetanus Immunization: Unknown - Past Social History Smoking Status: Never Smoked - CARDIAC Hx Cardiac Disorders: Yes (Heart murmur) Hx Hypertension: Yes - PULMONARY Hx Respiratory Disorders: No - NEUROLOGICAL Hx Neurological Disorder: Yes HX Cerebrovascular Accident: Yes Hx Dementia: Yes Other/Comment: difff walking - HEENT Hx HEENT Problems: No - RENAL Hx Chronic Kidney Disease: No - ENDOCRINE/METABOLIC Hx Endocrine Disorders: Yes Hx Hyperthyroidism: Yes - HEMATOLOGICAL/ONCOLOGICAL Hx Blood Disorders: No - INTEGUMENTARY Hx Dermatological Problems: No - MUSCULOSKELETAL/RHEUMATOLOGICAL Hx Falls: Yes - GASTROINTESTINAL Hx Gastrointestinal Disorders: Yes (GERD CONSTIPATION,POOR APPETITE) - GENITOURINARY/GYNECOLOGICAL Hx Genitourinary Disorders: Yes Hx Reproductive Disorders: No - PSYCHIATRIC Hx Psychophysiologic Disorder: No Hx Anxiety: Yes Hx Depression: No Hx Emotional Abuse: No Hx Physical Abuse: No Hx Substance Use: No - SURGICAL HISTORY Hx Coronary Stent: Yes Hx Thyroidectomy: Yes Other/Comment: partial thyroidectomy many yrs ago - ANESTHESIA Hx Anesthesia: Yes Hx Anesthesia Reactions: No Hx Malignant Hyperthermia: No Meds Allergies/Adverse Reactions: Allergies Allergy/AdvReac Type Severity Reaction Status Date / Time No Known Allergies Allergy Verified 11/18/16 01:26 Physical Exam - Constitutional Appears: Well, No Acute Distress - Head Exam Head Exam: ATRAUMATIC, NORMAL INSPECTION, NORMOCEPHALIC - Eye Exam Eye Exam: EOMI, PERRL Additional comments: wearing glasses - ENT Exam ENT Exam: Mucous Membranes Moist, Normal Exam - Neck Exam Neck exam: Positive for: Full Rom. Negative for: Lymphadenopathy - Respiratory Exam Respiratory Exam: Rales (mild at base bilateral ), NORMAL BREATHING PATTERN. absent: Decreased Breath Sounds, Rhonchi, Wheezes, Respiratory Distress - Cardiovascular Exam Cardiovascular Exam: REGULAR RHYTHM, RRR, +S1, +S2, Systolic Murmur (systolic murmur). absent: JVD - GI/Abdominal Exam GI & Abdominal Exam: Normal Bowel Sounds, Soft. absent: Firm, Guarding, Tenderness - Extremities Exam Extremities exam: Positive for: calf tenderness (bilateral ), normal capillary refill, pedal edema (+2/+3), tenderness (to palpation ) - Back Exam Back exam: NORMAL INSPECTION. absent: paraspinal tenderness, rash noted - Neurological Exam Neurological exam: Alert, CN II-XII Intact, Oriented x3 Additional comments: Motor and sensory grossly intact - Psychiatric Exam Psychiatric exam: Normal Affect Additional comments: dementia noted from chart, appears to be at baseline - Skin Skin Exam: Dry, Intact, Normal Color, Rash (left anterior chest wall, bilateral lower extremities noted ), Urticaria, Warm Results - Vital Signs Recent Vital Signs: Last Vital Signs Temp 97.6 F 02/13/17 15:50 Pulse 62 02/13/17 19:02 Resp 18 02/13/17 19:02 BP 130/75 02/13/17 19:03 Pulse Ox 98 02/13/17 19:02 - Labs Result Diagrams: 02/13/17 17:45 02/13/17 17:45 Labs: Laboratory Results - last 24 hr 02/13/17 02/13/17 17:45 17:45 WBC 5.5 RBC 4.16 Hgb 13.1 Hct 39.8 MCV 95.7 MCH 31.5 MCHC 32.9 RDW 13.0 Plt Count 199 MPV 10.1 Gran % 55.1 Lymph % (Auto) 24.1 [place] % (Auto) 13.2 H Eos % (Auto) 6.9 H Baso % (Auto) 0.7 Gran # 3.01 Lymph # 1.3 [place] # 0.7 H Eos # 0.4 Baso # 0.04 Sodium 141 Potassium 4.4 Chloride 101 Carbon Dioxide 30 Anion Gap 14 BUN 30 H Creatinine 1.2 Est GFR ( Amer) 51 Est GFR (Non-Af Amer) 42 Random Glucose 110 Calcium 9.0 Total Bilirubin 0.5 AST 23 ALT 27 Alkaline Phosphatase 91 NT-Pro-B Natriuret Pep 3190 H Total Protein 7.2 Albumin 3.9 Globulin 3.4 Albumin/Globulin Ratio 1.1 Assessment & Plan - Assessment and Plan (Free Text) Assessment: Patient is a 86 year old female with PMH sig for DVT, NSTEMI, hypothyroidism, HLD, anxiety, HTN, CHF and dementia who presents to the ED from [facility] status post abnormal venous doppler scan of her right lower extremity on 02/11/2017. Patient had bilateral doppler US in ED which proved to be negative. Patient is admitted for further observation for suspected acute exacerbation of systolic CHF. Plan: 1. Acute exacerbation of CHF - Systolic CHF with last known EF of 25-30% in 06/2015 - +2/+3 pitting edema bilateral, rales on lung exam - Patient was given IV Lasix 20mg in ED - Start IV lasix 40mg BID - Restart home medications for CHF - Repeat BNP in AM - Chest Xray in AM 2. Hx of DVT - Patient with history of DVT in previous visit - Patient on Eliquis 2.5 mg for DVT - Doppler US bilateral in ED negative for thrombosis - Continue to monitor clinically 3. Bilateral lower extremity puritis - Lower extremity bilateral erythema and puritis - Chronic history of rash 4. Hx of hypothyroidism - continue home meds 5. Hx of Anxiety - continue home meds 6. Hx of HLD - continue home meds 7. GI ppx - Protonix Case reviewed and discussed with attending - Date & Time Date: 02/13/17 Time: 20:17 <Rell Beauchamp - Last Filed: 02/13/17 22:13> Present on Admission - Present on Admission Any Indicators Present on Admission: Yes History of DVT/PE: Yes History of Uncontrolled Diabetes: No Urinary Catheter: No Decubitus Ulcer Present: No History Surgical Site Infection Following: None Results - Vital Signs Recent Vital Signs: Last Vital Signs Temp 97.6 F 02/13/17 15:50 Pulse 62 02/13/17 19:02 Resp 18 02/13/17 19:02 BP 110/75 02/13/17 21:21 Pulse Ox 98 02/13/17 19:02 - Labs Result Diagrams: 02/13/17 17:45 02/13/17 17:45 Attending/Attestation - Attestation I have personally seen and examined this patient.: Yes I have fully participated in the care of the patient.: Yes I have reviewed all pertinent clinical information: Yes Notes (Text): 02/13/17 22:11 patient was seen when she was in bed # 17 in the ER. Agree with history, physical examination, assessment and plan.
[2017-02-14 07:23] LABS: BASO # 0.04 K/mm3 (0.0-2.0); BASO % 0.9 % (0.0-3.0); EOS # 0.4 (0.0-0.7); GRAN # 2.5 (1.4-6.5); GRAN % 53.9 % (50.0-68.0); HEMATOCRIT 41.1 % (36.0-48.0); LYMPH # 1.2 (1.2-3.4); LYMPH % 25.3 % (22.0-35.0); MEAN CELL VOLUME 94.9 fl (80.0-105.0); MEAN CORPUSCULAR HEMOGLOBIN 30.9 pg (25.0-35.0); MEAN CORPUSCULAR HGB CONC 32.6 g/dl (31.0-37.0); MEAN PLATELET VOLUME 10.4 fl (7.0-11.0); MONO # 0.6 (0.1-0.6); MONO % 11.9 % (1.0-6.0); RED CELL DISTRIBUTION WIDTH 12.9 % (11.5-14.5); WHITE BLOOD COUNT 4.6 10^3/ul (4.5-11.0)
[2017-02-14] MEDS ORDERED: Levothyroxine 175 MCG TAB PO SCH ×2 (07:30→17:28)
[2017-02-14 07:32] LABS: ALB/GLOB RATIO 1.2 (1.1-1.8); BILIRUBIN,TOTAL 0.6 mg/dL (0.2-1.3); CALCIUM 8.9 mg/dL (8.4-10.5); POTASSIUM 3.9 mmol/L (3.6-5.0); TOTAL PROTEIN 7.1 g/dL (5.8-8.3)
[2017-02-14] MEDS: Metoprolol Succinate 50 mg XL Tab PO SCH (10:07)
[2017-02-14] MEDS: Potassium Chloride 10 mEq ER Tab PO SCH (10:08)
[2017-02-14] MEDS: Pantoprazole 40 mg EC Tab PO SCH (10:08)
--- NOTE | 2017-02-14 10:10 | RAD ---
HISTORY: CHF, shortness of breath COMPARISON: 02/13/2017 FINDINGS: LUNGS: No active pulmonary disease. PLEURA: No significant pleural effusion identified, no pneumothorax apparent. CARDIOVASCULAR: Normal. OSSEOUS STRUCTURES: No significant abnormalities. VISUALIZED UPPER ABDOMEN: Normal. OTHER FINDINGS: Fluid levels are seen in the maxillary sinuses consistent with sinusitis IMPRESSION: No active disease. Fluid levels in the maxillary sinuses consistent with sinusitis
[2017-02-14 13:30] LABS: INR 1.12 (0.93-1.08); PARTIAL THROMBOPLASTIN TIME 35.7 Seconds (25.1-36.5)
--- NOTE | 2017-02-14 13:53 | CP.PCM.PN ---
<Arnol Cardenas - Last Filed: 02/14/17 13:41> Subjective - Date & Time of Evaluation Date of Evaluation: 02/14/17 Time of Evaluation: 13:41 - Subjective Subjective: Medicine Progress Note: Pt seen and examined at bedside. Pt denied any acute overnight events. Pt states that she feels itchy in her groin. Pt denied CP, SOB, nausea, vomiting , diarrhea, abdominal pain, fever, chills, PAUL, dizziness, LE swelling/pain, or dysuria. Objective - Vital Signs/Intake and Output Vital Signs (last 24 hours): Temp Pulse Resp BP Pulse Ox 97.7 F 75 16 90/51 L 94 L 02/14/17 12:00 02/14/17 12:00 02/14/17 12:00 02/14/17 12:00 02/14/17 06:00 Intake and Output: 02/14/17 02/14/17 06:59 18:59 Intake Total 240 Output Total 600 Balance -360 - Medications Medications: Current Medications Atorvastatin Calcium (Lipitor) 10 mg PO DAILY [facility] Last Admin: 02/14/17 10:07 Dose: 10 mg Clopidogrel Bisulfate (Plavix) 75 mg PO DAILY [facility] Last Admin: 02/14/17 10:08 Dose: 75 mg Diphenhydramine HCl (Benadryl) 25 mg PO Q6 PRN PRN Reason: Itching / Pruritus Last Admin: 02/14/17 10:08 Dose: 25 mg Donepezil HCl (Aricept) 10 mg PO HS [facility] Last Admin: 02/13/17 22:55 Dose: 10 mg Estrogens Conjugated (Premarin Vaginal) 0 gm VG HS [facility] Ferrous Gluconate (Fergon) 324 mg PO DAILY [facility] Last Admin: 02/14/17 10:07 Dose: 324 mg Furosemide (Lasix) 40 mg IVP Q12 [facility] Stop: 02/14/17 23:59 Last Admin: 02/14/17 10:08 Dose: 40 mg Furosemide (Lasix) 40 mg PO DAILY [facility] Isosorbide Mononitrate (Imdur Er) 30 mg PO DAILY [facility] Last Admin: 02/14/17 10:07 Dose: 30 mg Levothyroxine Sodium (Synthroid) 175 mcg PO ACB [facility] Last Admin: 02/14/17 08:28 Dose: 175 mcg Lisinopril (Zestril) 5 mg PO DAILY [facility] Last Admin: 02/14/17 10:07 Dose: 5 mg Lorazepam (Ativan) 0.5 mg PO HS [facility] PRN Reason: Protocol Last Admin: 02/13/17 21:23 Dose: 0.5 mg Metoprolol Succinate (Toprol Xl) 50 mg PO DAILY [facility] Last Admin: 02/14/17 10:07 Dose: 50 mg Pantoprazole Sodium (Protonix Ec Tab) 40 mg PO ACB [facility] Last Admin: 02/14/17 10:08 Dose: 40 mg Potassium Chloride (Klor-Con 10) 10 meq PO DAILY [facility] Last Admin: 02/14/17 10:08 Dose: 10 meq - Labs Labs: 02/14/17 06:30 02/14/17 06:30 PT 12.4 SECONDS (9.4-12.5) 02/14/17 12:50 INR 1.12 (0.93-1.08) H 02/14/17 12:50 APTT 35.7 Seconds (25.1-36.5) 02/14/17 12:50 - Constitutional Appears: No Acute Distress - Head Exam Head Exam: ATRAUMATIC, NORMOCEPHALIC - Eye Exam Eye Exam: EOMI, Normal appearance, PERRL - ENT Exam ENT Exam: Mucous Membranes Moist - Neck Exam Neck Exam: Full ROM. absent: Lymphadenopathy, Tenderness, Thyromegaly - Respiratory Exam Respiratory Exam: Clear to Ausculation Bilateral. absent: Accessory Muscle Use , Rales, Rhonchi, Wheezes, Respiratory Distress - Cardiovascular Exam Cardiovascular Exam: RRR, +S1, +S2. absent: Diastolic murmur, Gallop, Rubs, Murmur - GI/Abdominal Exam GI & Abdominal Exam: Soft. absent: Distended, Guarding, Tenderness, Normal Bowel Sounds, Rebound - Extremities Exam Extremities Exam: Normal Inspection. absent: Joint Swelling, Pedal Edema Additional comments: calf TTP (hypersensitive) - Back Exam Back Exam: NORMAL INSPECTION - Neurological Exam Neurological Exam: Alert, Awake, Oriented x3 - Psychiatric Exam Psychiatric exam: Normal Affect, Normal Mood - Skin Skin Exam: Dry, Intact, Normal Color, Warm Assessment and Plan - Assessment and Plan (Free Text) Assessment: Patient is a 86 year old female with PMH sig for DVT, NSTEMI, hypothyroidism, HLD, anxiety, HTN, CHF and dementia who presents to the ED from [facility] status post abnormal venous doppler scan of her right lower extremity on 02/11/2017. Patient had bilateral doppler US in ED which proved to be negative. Patient is admitted for further observation for suspected acute exacerbation of systolic CHF. Plan: 1. Acute exacerbation of CHF - Systolic CHF with last known EF of 25-30% in 06/2015 F/u repeat Echo - CXR, Chest CT negative - Troponin x2 negative - BNP 3510 (8270 on previous admission) - Lasix 40 mg PO daily Cr 1.2, cont to monitor - Restart home medications for CHF - Cardiology consulted 2. Hx of DVT - Patient with history of DVT in previous visit - Patient on Eliquis 2.5 mg for DVT - Doppler US bilateral in ED negative for thrombosis - Continue to monitor clinically Baseline hypersensitivity in b/l LE, but no clinical signs of DVT 3. Atrophic Vaginitis - Estrogen cream 4. Hypothyroidism - TSH < 0.02 - Currently on Synthroid 175 mcg, will decrease as TSH is not in therapeutic range 5. Hx of Anxiety - continue home meds 6. Hx of HLD - continue home meds 7. GI/DVT ppx - Protonix - Eliquis Case reviewed and discussed with attending Iván Cardenas, PG1 <Karlie Claire - Last Filed: 02/14/17 16:05> Objective - Vital Signs/Intake and Output Vital Signs (last 24 hours): Temp Pulse Resp BP Pulse Ox 97.7 F 68 16 90/51 L 94 L 02/14/17 12:00 02/14/17 14:00 02/14/17 12:00 02/14/17 12:00 02/14/17 06:00 Intake and Output: 02/14/17 02/14/17 06:59 18:59 Intake Total 240 Output Total 600 Balance -360 - Medications Medications: Current Medications Apixaban (Eliquis) 2.5 mg PO BID [facility] PRN Reason: Protocol Aspirin (Aspirin Chewable) 81 mg PO DAILY [facility] Last Admin: 02/14/17 14:44 Dose: 81 mg Atorvastatin Calcium (Lipitor) 10 mg PO DAILY [facility] Last Admin: 02/14/17 10:07 Dose: 10 mg Clopidogrel Bisulfate (Plavix) 75 mg PO DAILY [facility] Last Admin: 02/14/17 10:08 Dose: 75 mg Diphenhydramine HCl (Benadryl) 25 mg PO Q6 PRN PRN Reason: Itching / Pruritus Last Admin: 02/14/17 10:08 Dose: 25 mg Donepezil HCl (Aricept) 10 mg PO HS [facility] Last Admin: 02/13/17 22:55 Dose: 10 mg Estrogens Conjugated (Premarin Vaginal) 0 gm VG HS [facility] Ferrous Gluconate (Fergon) 324 mg PO DAILY [facility] Last Admin: 02/14/17 10:07 Dose: 324 mg Furosemide (Lasix) 40 mg IVP Q12 [facility] Stop: 02/14/17 23:59 Last Admin: 02/14/17 10:08 Dose: 40 mg Furosemide (Lasix) 40 mg PO DAILY [facility] Isosorbide Mononitrate (Imdur Er) 30 mg PO DAILY [facility] Last Admin: 02/14/17 10:07 Dose: 30 mg Levothyroxine Sodium (Synthroid) 175 mcg PO ACB [facility] Last Admin: 02/14/17 08:28 Dose: 175 mcg Lisinopril (Zestril) 5 mg PO DAILY [facility] Last Admin: 02/14/17 10:07 Dose: 5 mg Lorazepam (Ativan) 0.5 mg PO HS [facility] PRN Reason: Protocol Last Admin: 02/13/17 21:23 Dose: 0.5 mg Metoprolol Succinate (Toprol Xl) 50 mg PO DAILY [facility] Last Admin: 02/14/17 10:07 Dose: 50 mg Pantoprazole Sodium (Protonix Ec Tab) 40 mg PO ACB [facility] Last Admin: 02/14/17 10:08 Dose: 40 mg Potassium Chloride (Klor-Con 10) 10 meq PO DAILY [facility] Last Admin: 02/14/17 10:08 Dose: 10 meq - Labs Labs: 02/14/17 06:30 02/14/17 06:30 PT 12.4 SECONDS (9.4-12.5) 02/14/17 12:50 INR 1.12 (0.93-1.08) H 02/14/17 12:50 APTT 35.7 Seconds (25.1-36.5) 02/14/17 12:50 Attending/Attestation - Attestation I have personally seen and examined this patient.: Yes I have fully participated in the care of the patient.: Yes I have reviewed all pertinent clinical information, including history, physical exam and plan: Yes Notes (Text): 02/14/17 16:03 Patient was seen and examined with product manager medical device. Agreed with resident assessment and plan. 86 yrs old female with acute on chronic systolic CHF exacerbation, improving with IV lasix, renal functions are stable. Patient has low TSH, on high dose of levothyroxine, will hold levothyroxin, will check T 4and T 3 level. Management plan was discussed in detail with patient Education was provided.
[2017-02-14 16:35] LABS: FREE T4 2.66 ng/dL (0.78-2.19)
[2017-02-14 16:49] LABS: T3 1.15 ng/mL (0.97-1.69)
[2017-02-14 17:20] LABS: T4 15.4 ug/dL (5.5-11.0)
--- NOTE | 2017-02-14 22:15 | CARD ---
APPROVED REPORT EKG Measurement Heart [id number] MI 182P-1 [id number] <Conclusion> Normal sinus rhythm Left ventricular hypertrophy with repolarization abnormality Abnormal ECG
--- NOTE | 2017-02-14 22:25 | CARD ---
APPROVED REPORT EKG Measurement Heart [id number] SC 182P-1 [id number] <Conclusion> Sinus bradycardia Left ventricular hypertrophy with repolarization abnormality Abnormal ECG
[2017-02-14] MEDS: CONJUGATED ESTROGENS VG SCH ×2 (22:51→22:56)
[2017-02-15 06:01] LABS: BASO # 0.03 K/mm3 (0.0-2.0); BASO % 0.7 % (0.0-3.0); EOS # 0.2 (0.0-0.7); EOS % 5.4 % (1.5-5.0); GRAN # 2.7 (1.4-6.5); GRAN % 60.6 % (50.0-68.0); HEMATOCRIT 39.5 % (36.0-48.0); LYMPH # 0.9 (1.2-3.4); LYMPH % 19.6 % (22.0-35.0); MEAN CELL VOLUME 95.6 fl (80.0-105.0); MEAN CORPUSCULAR HGB CONC 32.4 g/dl (31.0-37.0); MEAN PLATELET VOLUME 10.3 fl (7.0-11.0); MONO # 0.6 (0.1-0.6); MONO % 13.7 % (1.0-6.0); RED CELL DISTRIBUTION WIDTH 13.2 % (11.5-14.5); WHITE BLOOD COUNT 4.5 10^3/ul (4.5-11.0)
[2017-02-15 06:24] LABS: ALB/GLOB RATIO 1.2 (1.1-1.8); BILIRUBIN,TOTAL 0.6 mg/dL (0.2-1.3); CALCIUM 8.8 mg/dL (8.4-10.5); POTASSIUM 4.3 mmol/L (3.6-5.0); TOTAL PROTEIN 6.9 g/dL (5.8-8.3)
[2017-02-15] MEDS ORDERED: Levothyroxine 100 MCG TAB PO SCH (07:30)
[2017-02-15] MEDS: Pantoprazole 40 mg EC Tab PO SCH (08:12)
--- NOTE | 2017-02-15 08:45 | CON ---
CARDIOLOGY CONSULTATION DATE: 02/14/2017 REASON FOR CONSULTATION: To rule out congestive heart failure. HISTORY OF PRESENT ILLNESS: The patient is an 86-year-old white female who is a penitentiary resident, was transferred from penit[facility]iary because of right leg swelling. The patient denies any chest pain and is not aware of any history of heart attack in the past. SOCIAL HISTORY: The patient is a penitentiary resident, before she used to live with her son. She states that her son visits her routinely in the penitentiary. MEDICATIONS: Aricept 10 mg once a day, Ativan 0.5 mg each bedtime, Benadryl 25 mg p.o. q.6 hours, ferrous sulphate 324 mg daily, Imdur 30 mg daily, Klor-Con 10 mEq daily, Lasix 40 mg intravenously twice a day, Lipitor 10 mg once a day, Plavix 75 mg once a day, Toprol-XL 50 mg once a day, and Zestril 5 mg once a day. REVIEW OF SYSTEMS: No nausea or vomiting. No fever or chills. No retrosternal chest pain at this time. PHYSICAL EXAMINATION GENERAL: The patient is an elderly female, who does not appear to be in any distress. VITAL SIGNS: Blood pressure 122/65, heart rate 80, temperature 98.1, respirations 20. HEENT: Normocephalic. CHEST: Clear. HEART: S1 and S2 regular. ABDOMEN: Soft. EXTREMITIES: 1+ pitting edema. LABORATORY DATA: EKG reveals sinus bradycardia with rate of 54, LVH with repolarization changes. Venous Doppler of the lower extremity, no evidence of DVT. IMAGING: Chest x-ray was unremarkable. Echocardiograph study done in June of last year revealed ejection fraction in the range of 25% to 30% with severe valvular aortic stenosis measured 0.5 square centimeter valve area, [id number] mitral insufficiency. ASSESSMENT: 1. Exacerbation of congestive heart failure. 2. Cardiomyopathy with ejection fraction estimated between 25% to 30%. 3. Severe valvular aortic stenosis. RECOMMENDATIONS: Continue current Imdur 30 mg once a day, Klor-Con 10 mEq once a day, Lasix 40 mg intravenously twice a day, Lipitor 10 mg once a day, Plavix 75 mg once a day, Synthroid mcg once a day, Toprol-XL at 50 mg once a day, Zestril 5 mg once a day, start Lovenox at 40 mg once a day, however, prior to that obtain PT and PTT. The patient was already on subcutaneous heparin which was discontinued. Abdelrahman Fishman MD
[2017-02-15] MEDS: Metoprolol Succinate 50 mg XL Tab PO SCH (10:02)
[2017-02-15] MEDS: Potassium Chloride 10 mEq ER Tab PO SCH (10:04)
--- NOTE | 2017-02-15 10:55 | RAD ---
HISTORY: chf COMPARISON: No prior. FINDINGS: LUNGS: No active pulmonary disease. PLEURA: No significant pleural effusion identified, no pneumothorax apparent. CARDIOVASCULAR: Mild [id number]. Tortuous brachiocephalic vessels inferred superior right paratracheal location. -also similar-appearing OSSEOUS STRUCTURES: Generalized osteopenia. VISUALIZED UPPER ABDOMEN: Normal. OTHER FINDINGS: None. IMPRESSION: No active disease.
[2017-02-15] MEDS ORDERED: Sodium Chloride 0.9% 500 ML IV SCH (11:00)
--- NOTE | 2017-02-15 11:58 | CP.PCM.PN ---
<Arnol Cardenas - Last Filed: 02/15/17 11:52> Subjective - Date & Time of Evaluation Date of Evaluation: 02/15/17 Time of Evaluation: 11:52 - Subjective Subjective: Medicine Progress Note: Pt seen and examined at bedside. Pt denied overnight events. Pt states that she is itchy. Pt denied CP, SOB, nausea, vomiting, diarrhea, constipation, fever, chills, PAUL, dizziness, or fatigue. Objective - Vital Signs/Intake and Output Vital Signs (last 24 hours): Temp Pulse Resp BP Pulse Ox 98 F 71 19 107/54 L 94 L 02/15/17 00:01 02/15/17 10:02 02/15/17 00:01 02/15/17 10:02 02/14/17 06:00 Intake and Output: 02/15/17 02/15/17 06:59 18:59 Intake Total 240 Output Total 600 Balance -360 - Medications Medications: Current Medications Apixaban (Eliquis) 2.5 mg PO BID [facility] PRN Reason: Protocol Last Admin: 02/15/17 10:04 Dose: 2.5 mg Aspirin (Aspirin Chewable) 81 mg PO DAILY [facility] Last Admin: 02/15/17 10:02 Dose: 81 mg Atorvastatin Calcium (Lipitor) 10 mg PO DAILY [facility] Last Admin: 02/15/17 10:04 Dose: 10 mg Clopidogrel Bisulfate (Plavix) 75 mg PO DAILY [facility] Last Admin: 02/15/17 10:03 Dose: 75 mg Diphenhydramine HCl (Benadryl) 25 mg PO Q6 PRN PRN Reason: Itching / Pruritus Last Admin: 02/14/17 10:08 Dose: 25 mg Diphenhydramine HCl (Benadryl Maximum Strength 1%) 0 ea TOP Q6H PRN PRN Reason: Itching / Pruritus Donepezil HCl (Aricept) 10 mg PO HS [facility] Last Admin: 02/14/17 22:47 Dose: 10 mg Estrogens Conjugated (Premarin Vaginal) 0 gm VG HS [facility] Last Admin: 02/14/17 22:56 Dose: Not Given Ferrous Gluconate (Fergon) 324 mg PO DAILY [facility] Last Admin: 02/15/17 10:03 Dose: 324 mg Furosemide (Lasix) 40 mg PO DAILY [facility] Sodium Chloride (Sodium Chloride 0.9%) 500 mls @ 50 mls/hr IV .Q10H [facility] Isosorbide Mononitrate (Imdur Er) 30 mg PO DAILY [facility] Last Admin: 02/15/17 10:02 Dose: 30 mg Levothyroxine Sodium (Synthroid) 100 mcg PO ACB [facility] Last Admin: 02/15/17 08:13 Dose: 100 mcg Lisinopril (Zestril) 5 mg PO DAILY [facility] Last Admin: 02/14/17 10:07 Dose: 5 mg Lorazepam (Ativan) 0.5 mg PO HS [facility] PRN Reason: Protocol Last Admin: 02/14/17 22:47 Dose: 0.5 mg Metoprolol Succinate (Toprol Xl) 50 mg PO DAILY [facility] Last Admin: 02/15/17 10:02 Dose: 50 mg Pantoprazole Sodium (Protonix Ec Tab) 40 mg PO ACB [facility] Last Admin: 02/15/17 08:12 Dose: 40 mg Potassium Chloride (Klor-Con 10) 10 meq PO DAILY [facility] Last Admin: 02/15/17 10:04 Dose: 10 meq - Labs Labs: 02/15/17 05:30 02/15/17 05:30 PT 12.4 SECONDS (9.4-12.5) 02/14/17 12:50 INR 1.12 (0.93-1.08) H 02/14/17 12:50 APTT 35.7 Seconds (25.1-36.5) 02/14/17 12:50 - Constitutional Appears: No Acute Distress - Head Exam Head Exam: ATRAUMATIC, NORMAL INSPECTION, NORMOCEPHALIC - Eye Exam Eye Exam: EOMI, PERRL - ENT Exam ENT Exam: Mucous Membranes Moist - Neck Exam Neck Exam: Full ROM. absent: Lymphadenopathy, Tenderness, Thyromegaly - Respiratory Exam Respiratory Exam: Clear to Ausculation Bilateral. absent: Rales, Rhonchi, Wheezes - Cardiovascular Exam Cardiovascular Exam: RRR, +S1, +S2, Murmur (greatest at right sternal border). absent: Gallop, Rubs - GI/Abdominal Exam GI & Abdominal Exam: Soft, Normal Bowel Sounds. absent: Distended, Guarding, Tenderness, Rebound - Rectal Exam Rectal Exam: NORMAL INSPECTION - Extremities Exam Extremities Exam: Tenderness (b/l hypersensitive to touch) - Back Exam Back Exam: NORMAL INSPECTION - Neurological Exam Neurological Exam: Alert, Awake, Oriented x3 - Psychiatric Exam Psychiatric exam: Normal Affect, Normal Mood - Skin Skin Exam: Dry, Intact, Normal Color, Warm Assessment and Plan - Assessment and Plan (Free Text) Assessment: Patient is a 86 year old female with PMH sig for DVT, NSTEMI, hypothyroidism, HLD, anxiety, HTN, CHF and dementia who presents to the ED from [facility] status post abnormal venous doppler scan of her right lower extremity on 02/11/2017. Patient had bilateral doppler US in ED which proved to be negative. Patient is admitted for further observation for suspected acute exacerbation of systolic CHF. Plan: 1. Acute exacerbation of CHF - Systolic CHF with last known EF of 25-30% in 06/2015 F/u repeat Echo - CXR, Chest CT negative - Troponin x2 negative - BNP 3510 (8270 on previous admission) - Lasix and Lisinopril held - Restart home medications for CHF - Cardiology consulted, recs appreciated - Strict I's and O's, daily weights 2. BEHZAD - Cr 2.0 - Lasix and Lisinopril held - NS 500ml at 50 ml/hr 3. Hx of DVT - Patient with history of DVT in previous visit - Patient on Eliquis 2.5 mg for DVT - Doppler US bilateral in ED negative for thrombosis - Continue to monitor clinically Baseline hypersensitivity in b/l LE, but no clinical signs of DVT 4. Atrophic Vaginitis - Estrogen cream 5. Hypothyroidism - TSH < 0.02, Free T4 2.66, T3 1.15 - Synthroid held 6. Hx of Anxiety - continue home meds 7. Hx of HLD - continue home meds 8. GI/DVT ppx - Protonix - Eliquis Case reviewed and discussed with attending Iván Cardenas, PG1 <Karlie Claire - Last Filed: 02/16/17 12:25> Objective - Vital Signs/Intake and Output Vital Signs (last 24 hours): Temp Pulse Resp BP Pulse Ox 97.3 F L 67 18 118/80 93 L 02/16/17 06:00 02/16/17 09:24 02/16/17 06:00 02/16/17 09:24 02/16/17 06:00 Intake and Output: 11/16/17 11/16/17 06:59 18:59 Intake Total 2370 Output Total 550 Balance 1820 - Medications Medications: Current Medications Apixaban (Eliquis) 2.5 mg PO BID [facility] PRN Reason: Protocol Last Admin: 02/16/17 09:24 Dose: 2.5 mg Aspirin (Aspirin Chewable) 81 mg PO DAILY [facility] Last Admin: 02/16/17 09:24 Dose: 81 mg Atorvastatin Calcium (Lipitor) 10 mg PO DAILY [facility] Last Admin: 02/16/17 09:24 Dose: 10 mg Clopidogrel Bisulfate (Plavix) 75 mg PO DAILY [facility] Last Admin: 02/16/17 09:24 Dose: 75 mg Diphenhydramine HCl (Benadryl) 25 mg PO Q6 PRN PRN Reason: Itching / Pruritus Last Admin: 02/16/17 03:18 Dose: 25 mg Diphenhydramine HCl (Benadryl Maximum Strength 1%) 0 ea TOP Q6H PRN PRN Reason: Itching / Pruritus Last Admin: 02/16/17 09:24 Dose: 1 applic Donepezil HCl (Aricept) 10 mg PO HS [facility] Last Admin: 02/15/17 21:44 Dose: 10 mg Estrogens Conjugated (Premarin Vaginal) 0 gm VG HS [facility] Last Admin: 02/15/17 21:44 Dose: 1 applic Ferrous Gluconate (Fergon) 324 mg PO DAILY [facility] Last Admin: 02/16/17 09:24 Dose: 324 mg Isosorbide Mononitrate (Imdur Er) 30 mg PO DAILY [facility] Last Admin: 02/16/17 09:24 Dose: 30 mg Levothyroxine Sodium (Synthroid) 100 mcg PO ACB [facility] Last Admin: 02/15/17 08:13 Dose: 100 mcg Lisinopril (Zestril) 5 mg PO DAILY [facility] Last Admin: 02/14/17 10:07 Dose: 5 mg Lorazepam (Ativan) 0.5 mg PO HS [facility] PRN Reason: Protocol Last Admin: 02/15/17 21:44 Dose: 0.5 mg Metoprolol Succinate (Toprol Xl) 50 mg PO DAILY [facility] Last Admin: 02/16/17 09:24 Dose: 50 mg Pantoprazole Sodium (Protonix Ec Tab) 40 mg PO ACB [facility] Last Admin: 02/16/17 08:03 Dose: 40 mg Potassium Chloride (Klor-Con 10) 10 meq PO DAILY [facility] Last Admin: 02/16/17 09:24 Dose: 10 meq - Labs Labs: 02/16/17 05:30 02/16/17 05:30 PT 13.8 SECONDS (9.4-12.5) H 02/16/17 05:30 INR 1.25 (0.93-1.08) H 02/16/17 05:30 APTT 34.1 Seconds (25.1-36.5) 02/16/17 05:30 Attending/Attestation - Attestation I have personally seen and examined this patient.: Yes I have fully participated in the care of the patient.: Yes I have reviewed all pertinent clinical information, including history, physical exam and plan: Yes Notes (Text): 02/16/17 12:08 Patient was seen and examined with medical investigator. 86 yrs old female was admitted with acute on chronic systolic CHF exacerbation, was treated with IV lasix, creatinin has increased to 2.0 , etiology is due to over diuresis. Patient does not has any leg edema or sign of fluid overload today.We will hold diuretic, and ALYSAS.We will monitor BUN and creatinin.Avoid hypotension and nephro toxic medication. Patient Levothyroxine is on hold due to low TSH and elevated T 4 and T 3 . Management plan was discussed in detail with patient and son who is at bed side. Education was provided.
[2017-02-15] MEDS: DiphenhydrAMINE 1% 1 EA TUBE TOP PRN ×2 (12:41→18:28)
--- NOTE | 2017-02-15 16:33 | CARD ---
APPROVED REPORT EXAM: Two-dimensional and M-mode echocardiogram with Doppler and color Doppler. INDICATION Congestive Heart Failure 2D DIMENSIONS Left Atrium (2D)4.5 (1.6-4.0cm)IVSd1.3 (0.7-1.1cm) LVDd3.7 (3.9-5.9cm)LVOT Diameter1.9 (1.8-2.4cm) PWd1.3 (0.7-1.1cm)LVEF (%)30.0 (>50%) M-Mode DIMENSIONS Aortic Root3.10 (2.2-3.7cm)Aortic Cusp Exc.0.80 (1.5-2.0cm) Aortic Valve AoV Peak Dvxmhnte284.0cm/sAoV MMP245.0cmAO Peak GR.98mmHg LVOT Peak Dpwtonvi41.4cm/sLVOT VTI16.20cmAO Mean GR.49mmHg ROQUE (VMAX)0.06cs3DHO (VTI)0.41cm2 Mitral Valve MV E Nitgtkls03.8cm/sMV A Bfqneaos706.0cm/sMV SGB140je E/A ratio0.5MVA (PHT)1.82cm2 TDI Lateral E' Peak V4.87cm/sMedial E' Peak V2.53cm/sE/Lateral E'17.6 E/Medial E'33.9 Pulmonary Valve PV Peak Yulcpsjy61.4cm/sPV Peak Grad.2mmHg Tricuspid Valve TR Peak Atqnjzbl679yk/sRAP EIRCCQPP14aoIaNN Peak Gr.16mmHg [id number] LEFT VENTRICLE The left ventricle is normal size. There is mild concentric left ventricular hypertrophy. The systolic function is severely impaired. There is global hypokinesis of the left ventricle. Transmitral Doppler flow pattern is Grade I-abnormal relaxation pattern. RIGHT VENTRICLE The right ventricle is normal size. There is normal right ventricular wall thickness. The right ventricular systolic function is normal. ATRIA The left atrium is mildly dilated. The right atrium is mildly dilated. AORTIC VALVE The aortic valve is moderately calcified. No aortic regurgitation is present. There is severe valvular aortic stenosis. MITRAL VALVE The mitral valve is calcified and displays decreased opening. There is no mitral valve regurgitation noted. There is mild mitral valve stenosis. TRICUSPID VALVE The tricuspid valve is normal in structure. GREAT VESSELS The aortic root is normal in size. The IVC was not visualized. PERICARDIAL EFFUSION There is no pericardial effusion. <Conclusion> The left ventricle is normal size. There is mild concentric left ventricular hypertrophy. The systolic function is severely impaired. There is global hypokinesis of the left ventricle. Transmitral Doppler flow pattern is Grade I-abnormal relaxation pattern. The aortic valve is moderately calcified. There is severe valvular aortic stenosis. There is mild mitral valve stenosis.
[2017-02-15] MEDS: CONJUGATED ESTROGENS VG SCH (21:44)
[2017-02-16 06:13] VITALS: O2SAT 93
[2017-02-16 06:34] LABS: BASO # 0.04 K/mm3 (0.0-2.0); EOS # 0.3 (0.0-0.7); EOS % 7.2 % (1.5-5.0); GRAN # 2.21 (1.4-6.5); GRAN % 54.6 % (50.0-68.0); HEMATOCRIT 39.4 % (36.0-48.0); LYMPH # 0.9 (1.2-3.4); LYMPH % 22.3 % (22.0-35.0); MEAN CELL VOLUME 95.4 fl (80.0-105.0); MEAN CORPUSCULAR HEMOGLOBIN 30.8 pg (25.0-35.0); MEAN CORPUSCULAR HGB CONC 32.2 g/dl (31.0-37.0); MEAN PLATELET VOLUME 10.3 fl (7.0-11.0); MONO # 0.6 (0.1-0.6); MONO % 14.9 % (1.0-6.0); RED CELL DISTRIBUTION WIDTH 13.1 % (11.5-14.5)
[2017-02-16 06:50] LABS: INR 1.25 (0.93-1.08); PARTIAL THROMBOPLASTIN TIME 34.1 Seconds (25.1-36.5)
[2017-02-16 07:14] LABS: ALB/GLOB RATIO 1.2 (1.1-1.8); BILIRUBIN,TOTAL 0.7 mg/dL (0.2-1.3); CALCIUM 8.9 mg/dL (8.4-10.5); POTASSIUM 4.5 mmol/L (3.6-5.0); TOTAL PROTEIN 6.8 g/dL (5.8-8.3)
[2017-02-16] MEDS: Pantoprazole 40 mg EC Tab PO SCH (08:03)
--- NOTE | 2017-02-16 08:40 | IP.NPCORE ---
Heart Failure Core Measure - Heart Failure Ejection Fraction: Less Than 40 % Left Ventricular Function to be assessed after discharge: Yes Beta-Jennifer Prescribed: Metoprolol Succinate Angiotensin II Receptor Jennifer Prescribed: No Contraindication/Reason for not providing: rwnal insuff AnticoagulationTherapy for Atrial Fibrillation/Atrialflutter: Yes Aldosterone Antagonist Prescribed: Yes Hydralazine Nitrate Prescribed: Yes Cardiac Resynchronization Therapy Prescribed: Yes - Follow up Will be discharged to: [facility] Follow Up Date (must be within 7 days from discharge): 02/23/17 Follow Up Time: 09:00
[2017-02-16] MEDS: DiphenhydrAMINE 1% 1 EA TUBE TOP PRN (09:24)
[2017-02-16] MEDS: Potassium Chloride 10 mEq ER Tab PO SCH (09:24)
[2017-02-16] MEDS: Metoprolol Succinate 50 mg XL Tab PO SCH (09:24)
--- NOTE | 2017-02-16 09:51 | PN ---
DATE: SUBJECTIVE: The patient denies any chest pain. PHYSICAL EXAMINATION: VITAL SIGNS: Blood pressure 108/59, heart rate 76, temperature 97.9, respirations 20. HEENT: Normocephalic. CHEST: Absent breath sounds over the bases. HEART: S1 and S2, regular. Grade 3/6 ejection systolic murmur over left sternal border. ABDOMEN: Soft. EXTREMITIES: Trace leg edema. LABORATORY DATA: Today's SMA-7 is within normal limits except for BUN and creatinine of 36 and 2.0, which is a significant increase compared to yesterday. Today's hemoglobin, hematocrit, white count, and platelet counts are within normal limits. Today's chest x-ray is unremarkable. ASSESSMENT: 1. Exacerbation of congestive heart failure. 2. Cardiomyopathy. 3. Severe valvular aortic stenosis. 4. Prerenal azotemia. RECOMMENDATIONS: Continue aspirin 81 mg once a day, Eliquis 2.5 mg twice a day, Imdur at 30 mg once a day, Klor-Con at 10 mEq once a day, Lipitor at 10 mg once a day, Synthroid 100 mcg once a day. Vistaril is on hold for now and Lasix was discontinued. I will review the echocardiographic study performed today. Abdelrahman Fishman MD
[2017-02-16] MEDS ORDERED: Furosemide 40 mg/5 mL Oral Soln UD PO ONE (11:34)
--- NOTE | 2017-02-16 14:03 | CP.PCM.DIS ---
<Arnol Cardenas - Last Filed: 02/16/17 13:46> Provider - Provider Date of Admission: 02/14/17 15:01 Attending physician: Karlie Claire MD Primary care physician: Filemon Cummins MD Consults: Cardio: Alana Time Spent in preparation of Discharge (in minutes): 45 Hospital Course - Lab Results Lab Results: Most Recent Lab Values WBC 4.0 10^3/ul (4.5-11.0) L 02/16/17 05:30 RBC 4.13 10^6/uL (3.5-6.1) 02/16/17 05:30 Hgb 12.7 g/dL (12.0-16.0) 02/16/17 05:30 Hct 39.4 % (36.0-48.0) 02/16/17 05:30 MCV 95.4 fl (80.0-105.0) 02/16/17 05:30 MCH 30.8 pg (25.0-35.0) 02/16/17 05:30 MCHC 32.2 g/dl (31.0-37.0) 02/16/17 05:30 RDW 13.1 % (11.5-14.5) 02/16/17 05:30 Plt Count 191 10^3/uL (120.0-450.0) 02/16/17 05:30 MPV 10.3 fl (7.0-11.0) 02/16/17 05:30 Gran % 54.6 % (50.0-68.0) 02/16/17 05:30 Lymph % (Auto) 22.3 % (22.0-35.0) 02/16/17 05:30 [place] % (Auto) 14.9 % (1.0-6.0) H 02/16/17 05:30 Eos % (Auto) 7.2 % (1.5-5.0) H 02/16/17 05:30 Baso % (Auto) 1.0 % (0.0-3.0) 02/16/17 05:30 Gran # 2.21 (1.4-6.5) 02/16/17 05:30 Lymph # 0.9 (1.2-3.4) L 02/16/17 05:30 [place] # 0.6 (0.1-0.6) 02/16/17 05:30 Eos # 0.3 (0.0-0.7) 02/16/17 05:30 Baso # 0.04 K/mm3 (0.0-2.0) 02/16/17 05:30 PT 13.8 SECONDS (9.4-12.5) H 02/16/17 05:30 INR 1.25 (0.93-1.08) H 02/16/17 05:30 APTT 34.1 Seconds (25.1-36.5) 02/16/17 05:30 Sodium 139 mmol/L (132-148) 02/16/17 05:30 Potassium 4.5 mmol/L (3.6-5.0) 02/16/17 05:30 Chloride 101 mmol/L (98-107) 02/16/17 05:30 Carbon Dioxide 31 mmol/L (21-33) 02/16/17 05:30 Anion Gap 12 (10-20) 02/16/17 05:30 BUN 40 mg/dL (7-21) H 02/16/17 05:30 Creatinine 1.5 mg/dl (0.7-1.2) H 02/16/17 05:30 Est GFR ( Amer) 40 02/16/17 05:30 Est GFR (Non-Af Amer) 33 02/16/17 05:30 Random Glucose 104 mg/dL (70-110) 02/16/17 05:30 Calcium 8.9 mg/dL (8.4-10.5) 02/16/17 05:30 Total Bilirubin 0.7 mg/dL (0.2-1.3) 02/16/17 05:30 AST 29 U/L (14-36) 02/16/17 05:30 ALT 28 U/L (7-56) 02/16/17 05:30 Alkaline Phosphatase 84 U/L (38-126) 02/16/17 05:30 Troponin I 0.02 ng/mL D 02/14/17 06:30 NT-Pro-B Natriuret Pep 1450 pg/mL (0-450) H 02/16/17 05:30 Total Protein 6.8 g/dL (5.8-8.3) 02/16/17 05:30 Albumin 3.7 g/dL (3.0-4.8) 02/16/17 05:30 Globulin 3.2 gm/dL 02/16/17 05:30 Albumin/Globulin Ratio 1.2 (1.1-1.8) 02/16/17 05:30 Free T4 2.66 ng/dL (0.78-2.19) H 02/14/17 08:30 Thyroxine (T4) 15.4 ug/dL (5.5-11.0) H 02/14/17 08:30 Total T3 1.15 ng/mL (0.97-1.69) 02/14/17 08:30 TSH 3rd Generation < 0.02 mIU/mL (0.46-4.68) L 02/14/17 08:40 Ur Random Creatinine 132 mg/dL 02/15/17 20:15 Ur Random Urea Nitrogn 450 mg/dL 02/15/17 20:15 - Hospital Course Hospital Course: Patient is a 86 year old female with PMH sig for DVT, NSTEMI, hypothyroidism, HLD, anxiety, HTN, CHF and dementia who presented to the ED from [facility] status post abnormal venous doppler scan of her right lower extremity on 02/11/2017. The venous doppler was conducted after the patient reported pain in her right leg. Of note the patient has a history of lower extremity venous dopplers being positive for right superficial femoral thrombus with possible left common vein thrombus in November of 2016. The patient reported pain and itching sensation in her legs bilaterally. She reported the symptoms had been ongoing for the past month to two months. While in the ED the patient received a venous doppler of her lower extremities that were negative for acute findings of thrombosis and an elevated BNP of 3190 in the setting of bilateral pitting edema and has been admitted for suspected CHF exacerbation. Patient last known EF was 25-30% in 06/2015. Patient was admitted for CHF exacerbation. During hospital course, cardiology was consulted, who recommended continuing current medications for CHF. Patient was diuresed with improving SOB and decreased BNP. Echocardiogram was repeated and showed EF of 30% and severe aortic stenosis. Of note, patient developed BEHZAD during hospital stay. Nephrotoxic medications were held and patient received IV fluids; kidney function improved appropriately. Patient was restarted on her eliquis for DVT ppx. Of note, TSH was found to be < 0.02, thus synthroid was held. Patient was on 175 mcg of synthroid which was too much. Today, the patient was seen and examined at bedside. Pt denied an CP or SOB. As the patient was medically stable , she was discharge to return to her group home. assisted instructions were given: recommend repeat TSH within 1 week (Due to TSH <0.02, Free T4 2.66, T4 15.4, T3 1.15), Synthroid can be resumed afterwards under the discretion of the group home physician. Lasix was resumed as prescribed, BNP should be rechecked in 2-3 days, also while monitoring kidney function. Lasix should be adjusted based on renal function and symptoms under the discretion of the group home physician. Benadryl should be avoided in elderly, recommend Claritin for pruritis. Low sodium diet and minimal to moderate fluid intake as to not worsen fluid status. Discharge Exam - Head Exam Head Exam: ATRAUMATIC, NORMAL INSPECTION, NORMOCEPHALIC - Eye Exam Eye Exam: EOMI, Normal appearance, PERRL - ENT Exam ENT Exam: Mucous Membranes Moist - Neck Exam Neck exam: Full Rom - Respiratory Exam Respiratory Exam: Rales (b/l bases). absent: Accessory Muscle Use, Rhonchi, Wheezes, Respiratory Distress - Cardiovascular Exam Cardiovascular Exam: RRR, +S1, +S2. absent: Diastolic murmur, Gallop, Rubs, Systolic Murmur - GI/Abdominal Exam GI & Abdominal Exam: Soft. absent: Distended, Guarding, Organomegaly, Rebound, Tenderness - Extremities Exam Extremities exam: pedal edema - Back Exam Back exam: NORMAL INSPECTION. absent: paraspinal tenderness, vertebral tenderness - Neurological Exam Neurological exam: Alert, Oriented x3 - Psychiatric Exam Psychiatric exam: Normal Affect, Normal Mood - Skin Skin Exam: Dry, Intact, Normal Color, Warm Discharge Plan - Discharge Medications Prescriptions: Loratadine [Claritin] 10 mg PO DAILY PRN #15 tab PRN Reason: Itching / Pruritus - Follow Up Plan Condition: FAIR Disposition: HOME/ ROUTINE Instructions: Heart Failure (DC), Heart Failure (GEN), Pacemaker (DC), Pacemaker (GEN), Pulmonary Edema (DC), Pulmonary Edema (GEN), Ascites (DC), Ascites (GEN) Additional Instructions: 1. Follow up with PMD within 1 week 2. Patient was taking too much Synthroid. Hold for now. Recommend repeat TSH in 1 week (During admission: TSH <0.02, Free T4 2.66, T4 15.4, T3 1.15). Restart Synthroid after checking TSH in 1 week under the discretion of the group home physician. 3. Lasix 40 mg PO daily as prescribed, recheck BNP in 2-3 days, monitor creatinine. Adjust Lasix based on labs and discretion of group home physician. 4. Would avoid Benadryl in elderly. Give Claritin for pruritis. 5. Advise low sodium diet. Minimal to moderate fluid intake. Increased fluid intake could worsen CHF. 6. Return to ED if symptoms worsen Referrals: Filemon Cummins MD [Primary Care Provider] - <Karlie Claire - Last Filed: 02/16/17 17:07> Provider - Provider Date of Admission: 02/14/17 15:01 Attending physician: Karlie Claire MD Primary care physician: Filemon Cummins MD Hospital Course - Lab Results Lab Results: Most Recent Lab Values WBC 4.0 10^3/ul (4.5-11.0) L 02/16/17 05:30 RBC 4.13 10^6/uL (3.5-6.1) 02/16/17 05:30 Hgb 12.7 g/dL (12.0-16.0) 02/16/17 05:30 Hct 39.4 % (36.0-48.0) 02/16/17 05:30 MCV 95.4 fl (80.0-105.0) 02/16/17 05:30 MCH 30.8 pg (25.0-35.0) 02/16/17 05:30 MCHC 32.2 g/dl (31.0-37.0) 02/16/17 05:30 RDW 13.1 % (11.5-14.5) 02/16/17 05:30 Plt Count 191 10^3/uL (120.0-450.0) 02/16/17 05:30 MPV 10.3 fl (7.0-11.0) 02/16/17 05:30 Gran % 54.6 % (50.0-68.0) 02/16/17 05:30 Lymph % (Auto) 22.3 % (22.0-35.0) 02/16/17 05:30 [place] % (Auto) 14.9 % (1.0-6.0) H 02/16/17 05:30 Eos % (Auto) 7.2 % (1.5-5.0) H 02/16/17 05:30 Baso % (Auto) 1.0 % (0.0-3.0) 02/16/17 05:30 Gran # 2.21 (1.4-6.5) 02/16/17 05:30 Lymph # 0.9 (1.2-3.4) L 02/16/17 05:30 [place] # 0.6 (0.1-0.6) 02/16/17 05:30 Eos # 0.3 (0.0-0.7) 02/16/17 05:30 Baso # 0.04 K/mm3 (0.0-2.0) 02/16/17 05:30 PT 13.8 SECONDS (9.4-12.5) H 02/16/17 05:30 INR 1.25 (0.93-1.08) H 02/16/17 05:30 APTT 34.1 Seconds (25.1-36.5) 02/16/17 05:30 Sodium 139 mmol/L (132-148) 02/16/17 05:30 Potassium 4.5 mmol/L (3.6-5.0) 02/16/17 05:30 Chloride 101 mmol/L (98-107) 02/16/17 05:30 Carbon Dioxide 31 mmol/L (21-33) 02/16/17 05:30 Anion Gap 12 (10-20) 02/16/17 05:30 BUN 40 mg/dL (7-21) H 02/16/17 05:30 Creatinine 1.5 mg/dl (0.7-1.2) H 02/16/17 05:30 Est GFR ( Amer) 40 02/16/17 05:30 Est GFR (Non-Af Amer) 33 02/16/17 05:30 Random Glucose 104 mg/dL (70-110) 02/16/17 05:30 Calcium 8.9 mg/dL (8.4-10.5) 02/16/17 05:30 Total Bilirubin 0.7 mg/dL (0.2-1.3) 02/16/17 05:30 AST 29 U/L (14-36) 02/16/17 05:30 ALT 28 U/L (7-56) 02/16/17 05:30 Alkaline Phosphatase 84 U/L (38-126) 02/16/17 05:30 Troponin I 0.02 ng/mL D 02/14/17 06:30 NT-Pro-B Natriuret Pep 1450 pg/mL (0-450) H 02/16/17 05:30 Total Protein 6.8 g/dL (5.8-8.3) 02/16/17 05:30 Albumin 3.7 g/dL (3.0-4.8) 02/16/17 05:30 Globulin 3.2 gm/dL 02/16/17 05:30 Albumin/Globulin Ratio 1.2 (1.1-1.8) 02/16/17 05:30 Free T4 2.66 ng/dL (0.78-2.19) H 02/14/17 08:30 Thyroxine (T4) 15.4 ug/dL (5.5-11.0) H 02/14/17 08:30 Total T3 1.15 ng/mL (0.97-1.69) 02/14/17 08:30 TSH 3rd Generation < 0.02 mIU/mL (0.46-4.68) L 02/14/17 08:40 Ur Random Creatinine 132 mg/dL 02/15/17 20:15 Ur Random Urea Nitrogn 450 mg/dL 02/15/17 20:15 Attending/Attestation - Attestation I have personally seen and examined this patient.: Yes I have fully participated in the care of the patient.: Yes I have reviewed all pertinent clinical information, including history, physical exam and plan: Yes Notes (Text): 02/16/17 17:03 Patient was seen and examined with medical service technician. 86 yrs old female was admitted with acute on chronic systolic CHF exacerbation, was treated with IV lasix, creatinin increased to 2.0 , due to over diuresis. Diuretic, and ALYSSA were held .Creatinin has improved to 1.5Patient does not has any leg edema or sign of fluid overload today.She will be restated on her lasix 40 mg po daily and lisinopril. Patient is on room air There is no sign of fluid overload. Patient Levothyroxine is on hold due to low TSH and elevated T 4 and T 3 .She will need repeat Thyroid function test in 1-2 week and may need to be restarte don low dose of levothyroxine depending on Thyroid functions. Management plan was discussed in detail with patient and son who is at bed side. Education was provided.
--- NOTE | 2017-02-16 15:02 | PN ---
SUBJECTIVE: The patient is in a much better mood. Her son is at the bedside. She denies any chest pain. PHYSICAL EXAMINATION VITAL SIGNS: Blood pressure 108/59, heart rate 67, temperature 97.3, and respirations 18. HEENT: Normocephalic. CHEST: Minimal basal rales. HEART: S1 and S2, regular, grade 4/6 ejection systolic murmur over left sternal border. ABDOMEN: Soft. EXTREMITIES: Trace leg edema LABORATORY DATA: Hemoglobin and hematocrit 12.7 and 39.4, white count 4.2, and platelet count of 191,000. SMA-7 is within normal limits except for BUN and creatinine of 40 and 1.5 respectively. ProBNP is 1450. Echocardiographic study revealed ejection fraction estimated at 30%, severe aortic stenosis and mild mitral stenosis. Yesterday's chest x-ray revealed mild cardiomegaly, improvement of the CHF, no active disease. ASSESSMENT: 1. Exacerbation of congestive heart failure. 2. Severe aortic stenosis. 3. Prerenal azotemia. RECOMMENDATIONS: Case was discussed with the patient's son at the bedside. He elected to go with conservative medical approach as previously planned with the patient's PMD. The patient can be discharged to the shelter on aspirin 81 mg once a day, Eliquis 2.5 mg once a day, Imdur 30 mg once a day, Klor-Con at 10 mEq once a day, Lipitor 10 mg once a day, Plavix 75 mg once a day, Synthroid may have to be reduced or discontinued. Toprol can be continued at 50 mg once a day, and Zestril 5 mg once a day. Abdelrahman Fishman MD
[2017-02-16 18:24] VITALS: BP 138/78; PULSE 86; RESP 18; TEMP 98.5
== END 2017-02-16 21:33 | DRG 292 ==
LOC: ED 15:34 → ERH 18:31 → 2RSO 22:35 → OBSVTOIN 02-14 15:01
PROVIDERS: ADMIT Internal Medicine; ATTEND Internal Medicine
DX: I11.0 Hypertensive heart disease with heart failure (principal); N17.9 Acute kidney failure, unspecified; F03.90 Unspecified dementia, unspecified severity, without behavioral disturbance, psychotic disturbance, mood disturbance, and anxiety; I42.9 Cardiomyopathy, unspecified; I50.23 Acute on chronic systolic (congestive) heart failure; E78.5 Hyperlipidemia, unspecified; E03.9 Hypothyroidism, unspecified; N95.2 Postmenopausal atrophic vaginitis; I08.0 Rheumatic disorders of both mitral and aortic valves; L29.9 Pruritus, unspecified; F41.9 Anxiety disorder, unspecified; I25.2 Old myocardial infarction; Z86.718 Personal history of other venous thrombosis and embolism; Z79.01 Long term (current) use of anticoagulants